=== PATIENT | female | born 1960 | race Caucasian/White ===

== ENCOUNTER 2018-04-05 12:23 | Observation (INO) | payer OTHER, SELFPAY ==
[2018-04-05] VITALS (11 sets, daily range): BP systolic 94–135; BP diastolic 68–89; PULSE 88–134; RESP 15–18; TEMP 36.3–36.8; O2SAT 95–100; BMI 21.3; BMI 24.5
--- NOTE | 2018-04-05 12:36 | EKG12_ITS ---
Test Reason : PALPS Blood Pressure : / mmHG Vent. Rate : 110 BPM Atrial Rate : 110 BPM P-R Int : 138 ms QRS Dur : 086 ms QT Int : 342 ms P-R-T Axes : 056 044 023 degrees QTc Int : 462 ms Sinus tachycardia Possible Left atrial enlargement Nonspecific ST and T wave abnormality Abnormal ECG Confirmed by FADUMO WAGNER, AIDEE ([id number]), purchasing expeditor MARIZA CASTELLANOS ([id number]) on 04/11/2018 2:39:07 PM Referred By: FLAVIA Confirmed By:AIDEE THORNE MD
--- NOTE | 2018-04-05 12:50 | RAD_ITS ---
STUDY: X-RAY CHEST REASON FOR EXAM: Female, 58 years old. Tachycardia TECHNIQUE: Single AP portable view of the chest. COMPARISON: 06/24/2014 FINDINGS: The lungs are clear and expanded. There is no demonstrated pleural abnormality. Normal size heart. Normal mediastinum and paulette. Normal visualized pulmonary arteries. Normal visualized aortic arch and descending thoracic aorta. Normal visualized thoracic spine. Normal visualized ribs, clavicles, and shoulders. There is no demonstrated abnormality of the visualized soft tissue structures of the upper abdomen. RAD/Chest 1 View (Portable) IMPRESSION: Normal x-ray examination of the chest. Electronically Signed: Jayjay Landin DO at 13:17 EST Tel , Service support ,
[2018-04-05] MEDS: Aspirin 81 MG TAB.CHEW 324 MG PO (13:01)
[2018-04-05 13:03] LABS: Absolute Lymphocyte Count 0.95 X10^3/ul (0.83-4.51); Absolute Neutrophil Count 4.5 X10^3/uL (2.0-7.7); Basophil# 0.01 X10^3/uL; Basophil% 0.2 % (0-1); Hemoglobin 13.6 g/dl (12.0-15.0); Lymphocyte # 0.95 X10^3/ul (4.0); Lymphocyte % 16.7 % (19-41); Mean Corpuscular Hgb 31.5 pg (27.0-32.0); Mean Corpuscular Volume 92.6 fL (81-99); Mean Platelet Vol. 9.9 fl (6.2-12.0); Monocyte# 0.17 X10^3/uL; Neutrophil # 4.54 X10^3/uL (2.7-7.7); Neutrophil % 79.9 % (47-70); Platelet Count 207 K/mm3 (150-450); RBC Distribution Width SD 39.8 fl (35.1-43.9); Red Blood Count 4.32 M/mm3 (4.2-5.4); White Blood Count 5.7 K/mm3 (4.4-11.0)
[2018-04-05] MEDS: 0.9% Normal Saline 1,000 ML 150 ML IV (13:04)
[2018-04-05 13:05] LABS: POSITIVE COUNT NO; POSITIVE DIFFERENTIAL NO; POSITIVE MORPHOLOGY NO
[2018-04-05 13:25] LABS: Anion Gap 11 (5-15); BUN 17 mg/dL (7-18); BUN/Creat Ratio 18.6 RATIO (10-20); Calcium,Total 8.9 mg/dL (8.5-10.1); Chloride 107 mmol/L (98-107); Creatinine, Serum 0.91 mg/dL (0.55-1.02); EST Glomerular Filtration Rate 68 mL/min (>60); Est Glom Filt Rate - Afr Amer 82 mL/min (>60); Estimated Creatinine Clearance 52.09 ml/min; Glucose 126 mg/dL (74-106); Potassium 3.2 mmol/L (3.5-5.1); Sodium Level 139 mmol/L (136-145)
--- NOTE | 2018-04-05 13:48 | ED.VISSUMM ---
- ER Visit Summary Date of Service: 04/05/18 Chief Complaint: [Racing heart and shortness of breath] History of Present Illness: The patient is a 58 F presents the emergency department with symptoms that started 2 hours ago. Patient states that she had worked out on her [place] bicycle. Patient states that while in the shower she felt like her heart was racing and began feeling very winded. Patient had some mild discomfort in her left shoulder. Patient is never had discomfort like this before. Patient is normally very active but she is only had a bicycle for about 4 days and she has been trying to do about 10 minutes a day. Prior to today she denies any exertional dyspnea or chest pain with activity. She denies any nausea or vomiting. Patient has history of hypothyroidism and anxiety but states she has not had a panic attack in many years.] Physical Examination: [HEENT-PERRLA, EOMI. Cranial nerves II through XII grossly intact. TMs clear. Mucous membranes moist. No adenopathy. Cardiovascular-regular rate and rhythm without murmur or ectopy Lungs-clear to auscultation, chest wall stable without crepitus or subcu emphysema Abdomen-normoactive bowel sounds, soft, nontender, no rebound or rigidity, no peritoneal signs. Extremities-intact ?4, normal range of motion, normal pulses, atraumatic] Test Results: [EKG obtained arrival shows sinus rhythm with a ventricular rate of 110 bpm with some nonspecific ST changes noted. No old EKGs available for comparison. CBC with differential showing a 5.7, hemoglobin 13.6, hematocrit 40, placed 207. Chemistries unremarkable other than a slightly depressed potassium of 3.2 for which I did order 40 mEq of potassium chloride p.o. Troponin was less than 0.015. D-dimer was normal 0.30. Chest x-ray was normal.] Emergency Department Course and Treatment: [Patient was given baby aspirin 324 mg p.o.] Treatment Plan: [Admit for further workup and evaluation] Disposition: [Admit] Impression: [Anginal equivalent/dyspnea Tachycardia] This note was generated with [employer] dictation software. It may contain incorrect words, spelling, and punctuation that were not noted in review of the chart prior to signing ED Disposition - Plan for ED Patient: Chief Complaint: Palpitations Referrals: Anat Ford MD [Primary Care Provider] -
--- NOTE | 2018-04-05 14:10 | PCM.HP.STD ---
Problem List (1) Palpitation Status: Acute (2) Papillary carcinoma of thyroid Status: Chronic (3) Hypothyroidism Status: Chronic History of Present Illness Date of Admission: 04/05/18 Chief Complaint: Palpitation, shortness of breath, chest tightness. The patient is a 58 year old F with past medical history as mentioned above presented to the emergency because of palpitation and shortness of breath. Her symptoms started this morning when she was taking a shower, started feeling that her heart is racing, associated with dizziness and not feeling well. She came out of shower and she continued to do her daily activities but she continued to have palpitation, feeling a little bit dizzy and later, she started having chest discomfort. She described this chest discomfort as chest tightness, not clear pain, retrosternal, not radiating, continue to have associated palpitation and mild shortness of breath and without aggravating or relieving factors. She mentioned that she did have a history of panic attacks in the past. She denied sweating, nausea, vomiting, syncope or presyncope. In the emergency department, patient was afebrile, tachycardic, blood pressure and pulse ox was normal. Her routine blood work was remarkable for potassium of 3.2, otherwise normal. EKG revealed sinus tachycardia without evidence of other acute ischemic changes or cardiac arrhythmias. Her troponin was negative. Chest x-ray showed no acute findings. D-dimer was negative. She is being admitted for palpitation, shortness of breath and chest discomfort. 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 Denies: Chest Pain, Heaviness, Light Headedness, Syncope Respiratory: Reports: Shortness of Breath. Denies: Cough, Pleuritic Pain, Sputum production, Wheezing Gastrointestinal: Denies: Abdominal Pain, Constipation, Diarrhea, Nausea, Vomiting Genitourinary: Denies: Dysuria, Frequency, Hematuria Musculoskeletal: Denies: Arm Pain, Back Pain, Foot Pain Skin: Denies: Dryness, Rash Neurological: Denies: Balance problems, Double vision, Change in Speech, Slurred speech, Confusion, Headaches, Incoordination, Numbness Psychiatric: Denies: Anxiety, Depression Endocrine: Denies: Change in Body Habitus, Polydipsia VTE Information - Inpt Only VTE Present on Admission: No VTE Mechan Device Prophylaxis: None VTE Pharm Prophylaxis ordered?: No Patient Problems: Active and Suspected Problems Palpitation (Acute) - Physical Exam General: Alert, Oriented x3, Cooperative, No apparent distress HEENT: Atraumatic, PERRLA, EOMI, Normocephalic Oral: Moist Mucosa, No Gingival or Mucosal Lesions/ Ulcerations Neck: Supple, No JVD, Negative Carotid Bruits, Trachea Midline, Thyroid Normal Size and Texture Lungs: Clear to auscultation, Normal air movement, No rhonchi, No wheeze, No rales Cardiovascular: Regular rate, Regular Rhythm, Normal S1, Normal S2, PMI Normal, Tachycardic Abdomen: Bowel Sounds Present, Soft, Non Tender, Non-Distended, No Hepato-splenomegaly Extremities: No clubbing, No cyanosis, No edema Skin: No rashes, No breakdown Lymphatic: No Cervical, Supraclavicular, or Inguinal Adenopathy Neurological: Cranial nerves II-XII grossly intact, Motor Exam 5/5 strength throughout Psych/Mental Status: Normal Affect, Appropriate, Alert and oriented to time, place, person, mood and affect Vital Signs Temp Pulse Resp BP Pulse Ox 97.4 F L 99 15 135/80 H 100 04/05/18 12:24 04/05/18 12:57 04/05/18 12:57 04/05/18 12:57 04/05/18 12:57 Oxygen Delivery Method Room Air Weight: 214 lb 11.684 oz Body Mass Index (BMI) 40.6 Laboratory Tests Past 24 Hrs 04/05/18 04/05/18 04/05/18 12:50 12:50 12:50 WBC 5.7 RBC 4.32 Hgb 13.6 Hct 40.0 MCV 92.6 MCH 31.5 MCHC 34.0 RDW 12.0 RDW Differential 39.8 Plt Count 207 MPV 9.9 Immature Gran % (Auto) 0.200 Neut % (Auto) 79.9 H Lymph % (Auto) 16.7 L [place] % (Auto) 3.0 Eos % (Auto) 0.0 Baso % (Auto) 0.2 Absolute Neuts (auto) 4.5 Absolute Lymphs (auto) 0.95 Total Counted Not Reportable D-Dimer Quant (PE/DVT) 0.30 Sodium 139 Potassium 3.2 L Chloride 107 Carbon Dioxide 21.0 Anion Gap 11 BUN 17 Creatinine 0.91 Estim Creat Clear Calc 52.09 Est GFR (MDRD) Af Amer 82 Est GFR (MDRD) Non-Af 68 BUN/Creatinine Ratio 18.6 Glucose 126 H Calcium 8.9 Troponin I < 0.015 TSH 04/05/18 12:50 WBC RBC Hgb Hct MCV MCH MCHC RDW RDW Differential Plt Count MPV Immature Gran % (Auto) Neut % (Auto) Lymph % (Auto) [place] % (Auto) Eos % (Auto) Baso % (Auto) Absolute Neuts (auto) Absolute Lymphs (auto) Total Counted D-Dimer Quant (PE/DVT) Sodium Potassium Chloride Carbon Dioxide Anion Gap BUN Creatinine Estim Creat Clear Calc Est GFR (MDRD) Af Amer Est GFR (MDRD) Non-Af BUN/Creatinine Ratio Glucose Calcium Troponin I TSH Pending Clinical Impression(s) from Imaging Studies Chest X-Ray 04/05/18 12:50 IMPRESSION: Normal x-ray examination of the chest. Electronically Signed: Jayjay Landin DO at 13:17 EST Tel , Service support , Assessment/Plan All Active Problems Palpitation (Acute) This is a 58 years old female patient presented to the ED because of palpitation, shortness of breath and chest discomfort and she is being admitted for evaluation. #1 palpitations/shortness of breath/chest discomfort: No risk factors for CAD and no family history of premature CAD. Her EKG revealed sinus tachycardia, no acute ischemic changes. Troponin is negative. D-dimer was negative. Chest x-ray showed no acute findings. Her symptoms could be due to palpitation causing mild shortness of breath and chest discomfort which can be explained over replacement of levothyroxine as her TSH is low at 0.22. Routine blood work was unremarkable. Plan: Admit to PCU for observation, cardiac monitoring, serial cardiac enzymes, repeat EKG tomorrow morning, 2D echocardiogram, nuclear stress test tomorrow morning, Tylenol as needed, Zofran as needed, nitroglycerin as needed for pain. #2 hypothyroidism: TSH is low at 0.22 indicating over supplement with levothyroxine. Plan: Decrease levothyroxine down to 50 mcg daily, will check T4, both free and total as well as free T3. 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 Plan as above. #4 DVT prophylaxis: Low-risk patient, no prophylaxis indicated. This note was generated with [employer] software. It may contain incorrect words, spelling, and punctuation that were not noted in checking the note before signing. Code Visit OBSV E&M: 21540 Initial observation care L3
[2018-04-05 14:17] LABS: Thyroid Stim Hormone (TSH) 0.22 uIU/mL (0.358-3.74)
--- NOTE | 2018-04-05 14:32 | ECHOD_ITS ---
Reason For Study: Palpitations Procedure This was a 2D Doppler, Color Flow transthoracic echocardiogram. Exam performed portable in patient room. Left Ventricle Normal size and thickness. The estimated ejection fraction is 65 %. Stage 1 diastolic dysfunction. No regional wall motion abnormalities noted. Right Ventricle Normal size and thickness. Normal systolic function. Atria Normal left atrium. Normal right atrium. Normal atrial septum. Bubble contrast study negative for right to left interatrial shunt. Mitral Valve The mitral valve is structurally normal. No prolapse or stenosis seen. Tricuspid Valve Normal tricuspid valve. Trivial tricuspid valve insufficiency. Unable to estimate RV systolic pressure/pulmonary artery pressure due to technically difficult study. Aortic Valve Normal aortic valve. Trisinus/trileaflet aortic valve. Pulmonic Valve Normal pulmonic valve. Great Vessels Normal aortic root. Normal arch. Normal inferior vena cava. Inferior vena cava collapse with sniff. Pericardium/Pleural No pericardial effusion. Medication Performed a rapid injection of agitated mix of 9 cc saline and 1cc air to assess for atrial septal defect. MMode/2D Measurements & Calculations LVIDd: 4.2 cm IVSd: 0.94 cm Ao root diam: 2.7 cm LVIDs: 2.6 cm LVPWd: 0.73 cm RVDd: 2.8 cm FS: 37.7 % LAV(MOD-bp): 24.5 ml LVAd ap4: 20.5 cm2 SV(MOD-sp4): 36.1 ml LAV(MOD-bp) Indexed: 15.6 ml/m2 EDV(MOD-sp4): 52.9 ml LAV(MOD-sp2): 23.9 ml EDV(sp4-el): 54.7 ml LAV(MOD-sp4): 24.4 ml LVAs ap4: 9.7 cm2 ESV(MOD-sp4): 16.9 ml ESV(sp4-el): 16.4 ml EF(MOD-sp4): 68.1 % EF(sp4-el): 70.1 % SV(sp4-el): 38.3 ml LA A4 area: 11.2 cm2 LA dimension(2D): 2.7 cm RA A4 area: 9.1 cm2 Doppler Measurements & Calculations MV E max jimi: 82.3 cm/sec Lat Peak E' Jimi: 17.6 cm/sec Med Peak E' Jimi: 9.3 cm/sec MV A max jimi: 115.1 cm/sec E/E' lat: 4.7 E/E' med: 8.9 MV E/A: 0.71 Ao V2 max: 158.8 cm/sec LV V1 max: 135.1 cm/sec PA V2 max: 112.5 cm/sec Ao max P.1 mmHg LV V1 max P.3 mmHg Ao V2 mean: 117.3 cm/sec Ao mean P.9 mmHg Ao V2 VTI: 26.5 cm Interpretation Summary The estimated ejection fraction is 65 %. Stage 1 diastolic dysfunction. Bubble contrast study negative for right to left interatrial shunt. Trivial tricuspid valve insufficiency. Unable to estimate RV systolic pressure/pulmonary artery pressure due to technically difficult study. There is no comparison study available. Ordering Physician: Sabas Packer Referring Physician: Anat Ford Performed By: Helena Webb RDCS, RVT
--- NOTE | 2018-04-05 15:56 | EKG12_ITS ---
Test Reason : CP Blood Pressure : / mmHG Vent. Rate : 088 BPM Atrial Rate : 088 BPM P-R Int : 120 ms QRS Dur : 086 ms QT Int : 378 ms P-R-T Axes : 027 038 020 degrees QTc Int : 457 ms Normal sinus rhythm Normal ECG Confirmed by FADUMO WAGNER, AIDEE ([id number]), editor in chief newspaper MARIZA CASTELLANOS ([id number]) on 04/11/2018 3:49:16 PM Referred By: DIANDRA Confirmed By:AIDEE THORNE MD
[2018-04-05 17:04] LABS: Free T3 2.9 pg/mL (2.18-3.98); T4 Free Direct 1.27 ng/dL (0.76-1.46); T4 Total, Thyroxin 7.9 ug/dL (4.8-13.9)
[2018-04-06 02:58] VITALS: PULSE 72
[2018-04-06 03:08] VITALS: BP 102/65; PULSE 74; RESP 14; TEMP 36.6; O2SAT 96
[2018-04-06 05:45] VITALS: BP 97/66; PULSE 78; RESP 14; TEMP 36.6; O2SAT 97
[2018-04-06 05:46] LABS: Prothrombin Time (Protime)PT. 13.6 SECONDS (11.7-14.9)
[2018-04-06] MEDS: Levothyroxine 50 MCG Tablet PO (05:47)
[2018-04-06 05:55] LABS: Hematocrit 36.9 % (37-47); Hemoglobin 12.7 g/dl (12.0-15.0); Mean Corp Hgb Conc 34.4 g/gl (32-36); Mean Corpuscular Hgb 32.2 pg (27.0-32.0); Mean Corpuscular Volume 93.7 fL (81-99); Mean Platelet Vol. 10.1 fl (6.2-12.0); Platelet Count 195 K/mm3 (150-450); RBC Distribution Width CV 12.2 % (11.6-14.6); RBC Distribution Width SD 40.9 fl (35.1-43.9); Red Blood Count 3.94 M/mm3 (4.2-5.4); White Blood Count 5.6 K/mm3 (4.4-11.0)
--- NOTE | 2018-04-06 05:55 | EKG12_ITS ---
Test Reason : AM EKG Blood Pressure : / mmHG Vent. Rate : 076 BPM Atrial Rate : 076 BPM P-R Int : 126 ms QRS Dur : 092 ms QT Int : 392 ms P-R-T Axes : 030 044 019 degrees QTc Int : 441 ms Normal sinus rhythm with sinus arrhythmia Nonspecific ST segment abnormality Confirmed by FADUMO WAGNER, AIDEE ([id number]), newspaper editor managing MARIZA CASTELLANOS ([id number]) on 04/11/2018 3:47:26 PM Referred By: DR SMITH Confirmed By:AIDEE THORNE MD
[2018-04-06 06:04] LABS: Anion Gap 8 (5-15); BUN 15 mg/dL (7-18); BUN/Creat Ratio 19.9 RATIO (10-20); Calcium,Total 8.5 mg/dL (8.5-10.1); Chloride 111 mmol/L (98-107); Creatinine, Serum 0.75 mg/dL (0.55-1.02); EST Glomerular Filtration Rate 85 mL/min (>60); Est Glom Filt Rate - Afr Amer 102 mL/min (>60); Glucose 88 mg/dL (74-106); Potassium 3.8 mmol/L (3.5-5.1); Sodium Level 143 mmol/L (136-145)
[2018-04-06 06:06] LABS: Scan Indicated on CBC? Y/N NO
--- NOTE | 2018-04-06 09:33 | STRESSREP ---
Stress Test Report Date: 04/06/2018 Procedure: Stress nuclear imaging study Indications: Chest pain Consent: Per the patient Procedure: The patient exercised on a Jack protocol for 9 minutes completing Stage III achieving a peak heart rate of 173 beats per minute (105% predicted maximal heart rate) with a peak blood pressure of 144/64 mmHg and a peak MET capacity of approximately 10 METS. The baseline ECG demonstrated normal sinus rhythm with nonspecific ST segment abnormalities. The peak exercise ECG demonstrated no obvious ECG changes. There were no cardiac dysrhythmias pretest, during exercise, or recovery. The functional capacity was considered good. The patient had no complaint of chest discomfort during exercise or recovery. The examination was discontinued secondary to dyspnea. Impression: 1. Technically adequate (percent predicted maximal heart rate greater than 85%) exercise tolerance test 2. Peak exercise ECG with no obvious ECG changes 3. Nuclear images pending Myocardial perfusion imaging study: Technique: The patient was injected with 11.8 mci of technetium 99 M Cardiolite and subsequently rest SPECT Cardiolite nuclear imaging was obtained in the horizontal long, vertical long, and short axis views. The patient exercised on a Jack protocol for 9 minutes completing Stage III achieving a peak heart rate of 173 beats per minute (105% predicted maximal heart rate) with a peak blood pressure of 144/64 mmHg and a peak MET capacity of approximately 10 METS. The patient was injected with 33.4 mci of technetium-99m Cardiolite and subsequently stress SPECT Cardiolite nuclear imaging was obtained in the horizontal long, vertical long, and short axis views. A gated Cardiolite study at peak stress was obtained. Interpretation: Rest and stress SPECT Cardiolite nuclear imaging status post realignment, normalization, and attenuation correction, demonstrates the appearance of relative uniform tracer uptake and myocardial perfusion appearing within normal limits. There is end systolic thickening and brightening. The gated Cardiolite study demonstrates myocardial thickening and inward wall motion. The reported LVEF is 79%. Impression: 1. Rest and stress SPECT Cardiolite nuclear imaging demonstrate relative uniform tracer uptake and myocardial perfusion appearing within normal limits. 2. The gated Cardiolite study reports an LVEF of 79%. This note was generated using a voice recognition system and there may be incorrect words, spelling or punctuation that were not noted when reviewing the office note prior to saving.
[2018-04-06 10:00] VITALS: BP 109/73; PULSE 68; RESP 18; TEMP 37.1; O2SAT 100
--- NOTE | 2018-04-06 11:11 | DCINST_ITS ---
- Discharge Diagnoses Current Active Problems: Current Active and Chronic Problems Palpitation (Acute) Papillary carcinoma of thyroid (Chronic) Hypothyroidism (Chronic) You will use the following diet at home:: No restrictions Your food should be the consistency of: Regular Your liquids should be the consistency of: Regular/Thin Discharge Activity: Return to Normal Activity Allergies/Adverse Reactions: Allergies No Known Allergies Allergy (Verified 04/05/18 15:06) Medications to take at Discharge Biotin 1 mg PO DAILY 04/05/18 Levothyroxine [Synthroid] 88 mcg PO DAILY 04/05/18 Zinc 50 mg PO DAILY 04/05/18 Primary Care Physician: Anat Ford MD [Primary Care Provider] - Please follow up with your Primary Care Physician in: 1-2 weeks Test Results: Test results from this visit will be discussed in further detail at your follow- up appointment, if applicable. Proposed Discharge Date: 04/06/18
[2018-04-06 11:57] VITALS: PULSE 97
[2018-04-06 12:26] VITALS: BP 117/71; PULSE 89; RESP 18; TEMP 36.8; O2SAT 100; O2SAT 98
--- NOTE | 2018-04-06 13:05 | DS.PCM_ITS ---
<Eduar Isaacs - Last Filed: 04/06/18 13:01> Discharge Date and Diagnosis - Problem List Patient Problems: Active and Suspected Problems Palpitation (Acute) Date of Admission: 04/05/18 Date of Discharge: 04/06/18 - Primary Discharge Diagnosis Active and Suspected Problems Heart racing and SOB Anxiety Papillary carcinoma of the thyroid Hypothyroidism - Secondary Discharge Diagnosis Chronic Problems Papillary carcinoma of thyroid (Chronic) Hypothyroidism (Chronic) Hospital Course and Treatment Imaging Results: 04/06/18 05:55 Nuclear Stress Test - Treadmil [NM] Routine Impression: 1. Rest and stress SPECT Cardiolite nuclear imaging demonstrate relative uniform tracer uptake and myocardial perfusion appearing within normal limits. 2. The gated Cardiolite study reports an LVEF of 79%. Echo: Interpretation Summary The estimated ejection fraction is 65 %. Stage 1 diastolic dysfunction. Bubble contrast study negative for right to left interatrial shunt. Trivial tricuspid valve insufficiency. Unable to estimate RV systolic pressure/pulmonary artery pressure due to technically difficult study. There is no comparison study available. RAD/Chest 1 View (Portable) IMPRESSION: Normal x-ray examination of the chest. 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 She denied chest pain. She reported that she had just purchased a new exercise bike and was doing a workout on it at home, afterwards she was doing floor exercises and noticed her heart was racing and she felt somewhat short of breath. She states that this made her very anxious and this made her feel even worse. 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 In the ER her troponin was negative, EKG was sinus tach, potassium was somewhat low, d-dimer was negative, TSH was low however T3 and T4 were normal. She is admitted to the PCU and placed on telemetry. She had a stress test the following day which was negative. She underwent an echocardiogram which was unremarkable. She had no further symptoms after admission. It is felt that her symptoms were likely related to her new exercise program and anxiety her symptoms. She was discharged home in stable condition advised to follow-up with her PCP in 1-2 weeks. This patient was seen by Eduar Isaacs PA-C under the supervision of Doctor Vic. [] Patient Problems: Active and Suspected Problems Palpitation (Acute) - Physical Exam General: Alert, Oriented x3, Cooperative HEENT: Atraumatic, PERRLA, EOMI, Normocephalic Neck: Supple, No JVD, Negative Carotid Bruits Lungs: Clear to auscultation, Normal air movement Cardiovascular: Regular rate, No murmurs Abdomen: Bowel Sounds Present, Soft, Non Tender Extremities: No edema, Capillary Refill Less than 3 Seconds Skin: No rashes, No breakdown Musculoskeletal: No Tenderness to Palpation of Joints or Extremities Neurological: Cranial nerves II-XII grossly intact Psych/Mental Status: Normal Affect, Appropriate, Alert and oriented to time, place, person, mood and affect Vital Signs Temp Pulse Resp BP Pulse Ox 98.2 F 89 18 117/71 100 04/06/18 12:26 04/06/18 12:26 04/06/18 12:26 04/06/18 12:26 04/06/18 12:26 Oxygen Delivery Method Room Air Weight: 129 lb 13.636 oz Body Mass Index (BMI) 24.5 Intake and Output for Last 24 Hours 04/04/18 04/05/18 04/06/18 23:59 23:59 23:59 Intake Total 1000 / 1000 850 / 850 Balance 1000 / 1000 850 / 850 Laboratory Tests Past 24 Hrs 04/05/18 04/05/18 04/05/18 12:50 12:50 12:50 WBC 5.7 RBC 4.32 Hgb 13.6 Hct 40.0 MCV 92.6 MCH 31.5 MCHC 34.0 RDW 12.0 RDW Differential 39.8 Plt Count 207 MPV 9.9 Immature Gran % (Auto) 0.200 Neut % (Auto) 79.9 H Lymph % (Auto) 16.7 L [place] % (Auto) 3.0 Eos % (Auto) 0.0 Baso % (Auto) 0.2 Absolute Neuts (auto) 4.5 Absolute Lymphs (auto) 0.95 Total Counted Not Reportable PT INR APTT D-Dimer Quant (PE/DVT) 0.30 Sodium 139 Potassium 3.2 L Chloride 107 Carbon Dioxide 21.0 Anion Gap 11 BUN 17 Creatinine 0.91 Estim Creat Clear Calc 52.09 Est GFR (MDRD) Af Amer 82 Est GFR (MDRD) Non-Af 68 BUN/Creatinine Ratio 18.6 Glucose 126 H Calcium 8.9 Troponin I < 0.015 TSH Free T4 Thyroxine (T4) Free T3 pg/dL 04/05/18 04/05/18 04/05/18 12:50 15:54 15:54 WBC RBC Hgb Hct MCV MCH MCHC RDW RDW Differential Plt Count MPV Immature Gran % (Auto) Neut % (Auto) Lymph % (Auto) [place] % (Auto) Eos % (Auto) Baso % (Auto) Absolute Neuts (auto) Absolute Lymphs (auto) Total Counted PT INR APTT D-Dimer Quant (PE/DVT) Sodium Potassium Chloride Carbon Dioxide Anion Gap BUN Creatinine Estim Creat Clear Calc Est GFR (MDRD) Af Amer Est GFR (MDRD) Non-Af BUN/Creatinine Ratio Glucose Calcium Troponin I < 0.015 TSH 0.22 L Free T4 1.27 Thyroxine (T4) 7.9 Free T3 pg/dL 2.9 04/05/18 04/06/18 04/06/18 18:55 05:15 05:15 WBC 5.6 RBC 3.94 L Hgb 12.7 Hct 36.9 L MCV 93.7 MCH 32.2 H MCHC 34.4 RDW 12.2 RDW Differential 40.9 Plt Count 195 MPV 10.1 Immature Gran % (Auto) Neut % (Auto) Lymph % (Auto) [place] % (Auto) Eos % (Auto) Baso % (Auto) Absolute Neuts (auto) Absolute Lymphs (auto) Total Counted PT 13.6 INR 1.0 APTT 28.0 D-Dimer Quant (PE/DVT) Sodium Potassium Chloride Carbon Dioxide Anion Gap BUN Creatinine Estim Creat Clear Calc Est GFR (MDRD) Af Amer Est GFR (MDRD) Non-Af BUN/Creatinine Ratio Glucose Calcium Troponin I < 0.015 TSH Free T4 Thyroxine (T4) Free T3 pg/dL 04/06/18 05:15 WBC RBC Hgb Hct MCV MCH MCHC RDW RDW Differential Plt Count MPV Immature Gran % (Auto) Neut % (Auto) Lymph % (Auto) [place] % (Auto) Eos % (Auto) Baso % (Auto) Absolute Neuts (auto) Absolute Lymphs (auto) Total Counted PT INR APTT D-Dimer Quant (PE/DVT) Sodium 143 Potassium 3.8 Chloride 111 H Carbon Dioxide 24.0 Anion Gap 8 BUN 15 Creatinine 0.75 Estim Creat Clear Calc 63.20 Est GFR (MDRD) Af Amer 102 Est GFR (MDRD) Non-Af 85 BUN/Creatinine Ratio 19.9 Glucose 88 Calcium 8.5 Troponin I TSH Free T4 Thyroxine (T4) Free T3 pg/dL Discharge Diet: No Restrictions Discharge Activity: Return to Normal Activity Home Medications: Medications to take at Discharge Biotin 1 mg PO DAILY 04/05/18 Levothyroxine [Synthroid] 88 mcg PO DAILY 04/05/18 Zinc 50 mg PO DAILY 04/05/18 Primary Care Physician: Anat Ford MD [Primary Care Provider] - Please follow up with your Primary Care Physician in: 1-2 weeks Disposition: Home Minutes spent on discharge:: 35 Patient Condition:: Stable Medical Necessity - Tobacco Use Smoking Status: Never smoker Tobacco Use: Non-smoker Meaningful Use Info Meaningful Use Diagnoses (Choose all that apply): None applicable <Cristian Ho - Last Filed: 04/06/18 13:35> Discharge Date and Diagnosis - Primary Discharge Diagnosis Active and Suspected Problems Palpitation (Acute) - Secondary Discharge Diagnosis Chronic Problems Papillary carcinoma of thyroid (Chronic) Hypothyroidism (Chronic) Hospital Course and Treatment Imaging Results: 04/06/18 05:55 Nuclear Stress Test - Treadmil [NM] Routine Operations: None Procedures: 2-D Echocardiogram, Stress test Summary of Care Provided: Patient seen and examined independently. Data reviewed. I agree with the above note by the physician instruction assistant principal. The patient is a 58 year old F presents with feeling of fast heart rate after working out. Patient said that she was experiencing it as well after working out when she was walking her dog, though did endorse that she did feel anxious. Patient was admitted underwent cardiac workup that was unremarkable. In regards to the patient's symptoms, in regards to the fast heart rate, it is likely related with the patient's new workout that she was under taking anxiety. Advised patient to resume working out but to be started lower intensity are paced and then gradually work her way up as her and her endurance improves. No additional workup was necessary. [] - Physical Exam General: Alert, Cooperative HEENT: Atraumatic, Normocephalic Psych/Mental Status: Normal Affect, Appropriate Vital Signs Temp Pulse Resp BP Pulse Ox 36.8 C 89 18 117/71 100 04/06/18 12:26 04/06/18 12:26 04/06/18 12:26 04/06/18 12:26 04/06/18 12:26 Oxygen Delivery Method Room Air Weight: 58.9 kg Body Mass Index (BMI) 24.5 Intake and Output for Last 24 Hours 04/04/18 04/05/18 04/06/18 23:59 23:59 23:59 Intake Total 1000 / 1000 850 / 850 Balance 1000 / 1000 850 / 850 Laboratory Tests Past 24 Hrs 04/05/18 04/05/18 04/05/18 12:50 15:54 15:54 WBC RBC Hgb Hct MCV MCH MCHC RDW RDW Differential Plt Count MPV PT INR APTT Sodium Potassium Chloride Carbon Dioxide Anion Gap BUN Creatinine Estim Creat Clear Calc Est GFR (MDRD) Af Amer Est GFR (MDRD) Non-Af BUN/Creatinine Ratio Glucose Calcium Troponin I < 0.015 TSH 0.22 L Free T4 1.27 Thyroxine (T4) 7.9 Free T3 pg/dL 2.9 04/05/18 04/06/18 04/06/18 18:55 05:15 05:15 WBC 5.6 RBC 3.94 L Hgb 12.7 Hct 36.9 L MCV 93.7 MCH 32.2 H MCHC 34.4 RDW 12.2 RDW Differential 40.9 Plt Count 195 MPV 10.1 PT 13.6 INR 1.0 APTT 28.0 Sodium Potassium Chloride Carbon Dioxide Anion Gap BUN Creatinine Estim Creat Clear Calc Est GFR (MDRD) Af Amer Est GFR (MDRD) Non-Af BUN/Creatinine Ratio Glucose Calcium Troponin I < 0.015 TSH Free T4 Thyroxine (T4) Free T3 pg/dL 04/06/18 05:15 WBC RBC Hgb Hct MCV MCH MCHC RDW RDW Differential Plt Count MPV PT INR APTT Sodium 143 Potassium 3.8 Chloride 111 H Carbon Dioxide 24.0 Anion Gap 8 BUN 15 Creatinine 0.75 Estim Creat Clear Calc 63.20 Est GFR (MDRD) Af Amer 102 Est GFR (MDRD) Non-Af 85 BUN/Creatinine Ratio 19.9 Glucose 88 Calcium 8.5 Troponin I TSH Free T4 Thyroxine (T4) Free T3 pg/dL Discharge Diet: No Restrictions Discharge Activity: Return to Normal Activity Disposition: Home Patient Condition:: Stable Meaningful Use Info Meaningful Use Diagnoses (Choose all that apply): None applicable Code Visit OBSV E&M: 03570 Observation care discharge
--- OUTSIDE RECORDS SUMMARY | 2018-06-07 12:19 | XMS RPT_ITS ---
:1960 Author Organization [facility] Care Team Providers Name Role Phone Anat Ford Primary Care Unavailable Ashelfah, Ghasem Admitting Unavailable Cristian Ho Attending Unavailable Ashelfah, Ghasem Admitting Unavailable Ashelfah, Ghasem Attending Unavailable Anat Ford Primary Care Unavailable Ashelfah, Ghasem Consulting Unavailable Ashelfah, Ghasem Admitting Unavailable Eduar Isaacs Attending Unavailable Anat Ford Primary Care Unavailable Cristian Ho Consulting Unavailable HASAN, MERVAT Referring Unavailable HASAN, MERVAT Referring Unavailable HASAN, MERVAT Referring Unavailable PAM SOTO Referring Unavailable PAM SOTO Attending Unavailable IMCA Referring Unavailable ANAT FORD Primary Care Unavailable Marija SOTO Attending Unavailable ANAT FORD Primary Care Unavailable IMCA Referring Unavailable PROBLEMS PROBLEMS DATE TYPE CONDITION / CODE ATTENDING STATUS SOURCE 02/13/2018 Active Encounter for NA Active [place] [facility] examination [place] (general) (routine) Repository without abnormal findings / Z01.419(ICD-10) 08/30/2017 Admitting Unknown / Marija SOTO Active [facility] diagnosis UNK(Unknown) [facility] Repository 08/17/2013 Active Malignant neoplasm NA Active [place] of thyroid gland / Clinic Main C73(ICD-10) [place] Repository 01/01/2014 Active 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 / Clinic Main E04.1(ICD-10) [place] Repository 08/17/2013 Active Hypothyroidism, NA Active [place] unspecified / Clinic Main E03.9(ICD-10) [place] Repository PROCEDURES PROCEDURES No Procedure Records FoundRESULTS RESULTS DISCHARGE SUMMARY Observed: 04/06/2018 Status: F Source: EROS 1:36 PM [facility] REPOSITORY [facility] Medical Records Department [address] [place] [address] Discharge Summary 04/06/18 1301 MR#: [id number] Acct: [id number] Name: ALAINA RUIZ Rep #: [id number] : 1960 58 From: Eduar RICHARDS PCP: Anat Ford MD Status: DIS COURTNEY Y Location: [place] [id number] <Eduar Isaacs - Last Filed: 04/06/18 13:01> Discharge Date and Diagnosis - Problem List Patient Problems: Active and Suspected Problems Palpitation (Acute) Date of Admission: 04/05/18 Date of Discharge: 04/06/18 - Primary Discharge Diagnosis Active and Suspected Problems Heart racing and SOB Anxiety Papillary carcinoma of the thyroid Hypothyroidism - Secondary Discharge Diagnosis Chronic Problems Papillary carcinoma of thyroid (Chronic) Hypothyroidism (Chronic) Hospital Course and Treatment Imaging Results: 04/06/18 05:55 Nuclear Stress Test - Treadmil [NM] Routine Impression: 1. Rest and stress SPECT Cardiolite nuclear imaging demonstrate relative uniform tracer uptake and myocardial perfusion appearing within normal limits. 2. The gated Cardiolite study reports an LVEF of 79%. Echo: Interpretation Summary The estimated ejection fraction is 65 %. Stage 1 diastolic dysfunction. Bubble contrast study negative for right to left interatrial shunt. Trivial tricuspid valve insufficiency. Unable to estimate RV systolic pressure/pulmonary artery pressure due to technically difficult study. There is no comparison study available. RAD/Chest 1 View (Portable) IMPRESSION: Normal x-ray examination of the chest. 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 She denied chest pain. She reported that she had just purchased a new exercise bike and was doing a workout on it at home, afterwards she was doing floor exercises and noticed her heart was racing and she felt somewhat short of breath. She states that this made her very anxious and this made her feel even worse. 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 In the ER her troponin was negative, EKG was sinus tach, potassium was somewhat low, d-dimer was negative, TSH was low however T3 and T4 were normal. She is admitted to the PCU and placed on telemetry. She had a stress test the following day which was negative. She underwent an echocardiogram which was unremarkable. She had no further symptoms after admission. It is felt that her symptoms were likely related to her new exercise program and anxiety her symptoms. She was discharged home in stable condition advised to follow-up with her PCP in 1-2 weeks. This patient was seen by Eduar Isaacs PA-C under the supervision of Doctor Ho. [] Patient Problems: Active and Suspected Problems Palpitation (Acute) - Physical Exam General: Alert, Oriented x3, Cooperative HEENT: Atraumatic, PERRLA, EOMI, Normocephalic Neck: Supple, No JVD, Negative Carotid Bruits Lungs: Clear to auscultation, Normal air movement Cardiovascular: Regular rate, No murmurs Abdomen: Bowel Sounds Present, Soft, Non Tender Extremities: No edema, Capillary Refill Less than 3 Seconds Skin: No rashes, No breakdown Musculoskeletal: No Tenderness to Palpation of Joints or Extremities Neurological: Cranial nerves II-XII grossly intact Psych/Mental Status: Normal Affect, Appropriate, Alert and oriented to time, place, person, mood and affect Vital Signs Temp Pulse Resp BP Pulse Ox 98.2 F 89 18 117/71 100 04/06/18 12:26 04/06/18 12:26 04/06/18 12:26 04/06/18 12:04/06/18 12:26 Oxygen Delivery Method Room Air Weight: 129 lb 13.636 oz Body Mass Index (BMI) 24.5 Intake and Output for Last 24 Hours Intake Total 1000 / 1000 850 / 850 Balance 1000 / 1000 850 / 850 Laboratory Tests Past 24 Hrs WBC 5.7 RBC 4.32 Hgb 13.6 Hct 40.0 MCV 92.6 WBC RBC Hgb Hct MCV MCH MCHC RDW RDW Differential Plt Count MPV WBC RBC Hgb Hct MCV MCH MCHC RDW Discharge Diet: No Restrictions Discharge Activity: Return to Normal Activity Home Medications: Medications to take at Discharge Biotin 1 mg PO DAILY 04/05/18 Levothyroxine [Synthroid] 88 mcg PO DAILY 04/05/18 Zinc 50 mg PO DAILY 04/05/18 Primary Care Physician: Anat Ford MD [Primary Care Provider] - Please follow up with your Primary Care Physician in: 1-2 weeks Disposition: Home Minutes spent on discharge:: 35 Patient Condition:: Stable Medical Necessity - Tobacco Use Smoking Status: Never smoker Tobacco Use: Non-smoker Meaningful Use Info Meaningful Use Diagnoses (Choose all that apply): None applicable <Cristian Ho - Last Filed: 04/06/18 13:35> Discharge Date and Diagnosis - Primary Discharge Diagnosis Active and Suspected Problems Palpitation (Acute) - Secondary Discharge Diagnosis Chronic Problems Papillary carcinoma of thyroid (Chronic) Hypothyroidism (Chronic) Hospital Course and Treatment Imaging Results: 04/06/18 05:55 Nuclear Stress Test - Treadmil [NM] Routine Operations: None Procedures: 2-D Echocardiogram, Stress test Summary of Care Provided: Patient seen and examined independently. Data reviewed. I agree with the above note by the physician restaurant assistant. The patient is a 58 year old F presents with feeling of fast heart rate after working out. Patient said that she was experiencing it as well after working out when she was walking her dog, though did endorse that she did feel anxious. Patient was admitted underwent cardiac workup that was unremarkable. In regards to the patient's symptoms, in regards to the fast heart rate, it is likely related with the patient's new workout that she was under taking anxiety. Advised patient to resume working out but to be started lower intensity are paced and then gradually work her way up as her and her endurance improves. No additional workup was necessary. [] - Physical Exam General: Alert, Cooperative HEENT: Atraumatic, Normocephalic Psych/Mental Status: Normal Affect, Appropriate Vital Signs Temp Pulse Resp BP Pulse Ox 36.8 C 89 18 117/71 100 04/06/18 12:26 04/06/18 12:26 04/06/18 12:26 04/06/18 12:26 04/06/18 12:26 Oxygen Delivery Method Room Air Weight: 58.9 kg Body Mass Index (BMI) 24.5 Intake and Output for Last 24 Hours Intake Total 1000 / 1000 850 / 850 Balance 1000 / 1000 850 / 850 Laboratory Tests Past 24 Hrs WBC RBC Hgb Hct MCV MCH MCHC RDW RDW Differential WBC 5.6 RBC 3.94 L Hgb 12.7 Hct 36.9 L MCV 93.7 MCH 32.2 H MCHC 34.4 RDW 12.2 RDW Differential 40.9 WBC RBC Hgb Hct MCV MCH MCHC Discharge Diet: No Restrictions Discharge Activity: Return to Normal Activity Disposition: Home Patient Condition:: Stable Meaningful Use Info Meaningful Use Diagnoses (Choose all that apply): None applicable Code Visit OBSV E AND M: 85250 Observation care discharge 04/06/18 1306 <Electronically signed by Eduar RICHARDS> Date Eduar RICHARDS 04/06/18 1336 <Electronically signed by Cristian Ho DO> Cosigner Signature (if applicable): Date Cristian Ho DO CC: SUSIE Isaacs; Cristian Ho DO; Anat Ford MD Signed DISCHARGE INSTRUCTION Observed: 04/06/2018 Status: F Source: STEFAN 11:11 AM [facility] REPOSITORY [facility] Medical Records Department [address] [place] [address] Instructions for Home/Discharge Instructions 04/06/18 1111 MR#: [id number] Acct: [id number] Name: ALAINA RUIZ Rep #: [id number] : 1960 58 From: Eduar RICHARDS PCP: Anat Ford MD Status: ADM COURTNEY - Discharge Diagnoses Current Active Problems: Current Active and Chronic Problems Palpitation (Acute) Papillary carcinoma of thyroid (Chronic) Hypothyroidism (Chronic) You will use the following diet at home:: No restrictions Your food should be the consistency of: Regular Your liquids should be the consistency of: Regular/Thin Discharge Activity: Return to Normal Activity Allergies/Adverse Reactions: Allergies No Known Allergies Allergy (Verified 04/05/18 15:06) Medications to take at Discharge Biotin 1 mg PO DAILY 04/05/18 Levothyroxine [Synthroid] 88 mcg PO DAILY 04/05/18 Zinc 50 mg PO DAILY 04/05/18 Primary Care Physician: Anat Ford MD [Primary Care Provider] - Please follow up with your Primary Care Physician in: 1-2 weeks Test Results: Test results from this visit will be discussed in further detail at your follow-up appointment, if applicable. Proposed Discharge Date: 04/06/18 04/06/18 1111 <Electronically signed by Eduar RICHARDS> Date Eduar RICHARDS CC: Anat Ford MD Signed STRESS REPORT Observed: 04/06/2018 Status: F Source: EROS 9:38 AM [facility] REPOSITORY [facility] Cardiovascular Services [address] [place] [address] MR#: [id number] Acct: [id number] Name: ALAINA RUIZ Rep #: [id number] : 1960 58 From: Jose C Wang MD Primary Care: Anat Ford MD Status: ADM COURTNEY Ordering Dr: Sex: F C Stress Test Report Date: 04/06/2018 Procedure: Stress nuclear imaging study Indications: Chest pain Consent: Per the patient Procedure: The patient exercised on a Jack protocol for 9 minutes completing Stage III achieving a peak heart rate of 173 beats per minute (105% predicted maximal heart rate) with a peak blood pressure of 144/64 mmHg and a peak MET capacity of approximately 10 METS. The baseline ECG demonstrated normal sinus rhythm with nonspecific ST segment abnormalities. The peak exercise ECG demonstrated no obvious ECG changes. There were no cardiac dysrhythmias pretest, during exercise, or recovery. The functional capacity was considered good. The patient had no complaint of chest discomfort during exercise or recovery. The examination was discontinued secondary to dyspnea. Impression: 1. Technically adequate (percent predicted maximal heart rate greater than 85%) exercise tolerance test 2. Peak exercise ECG with no obvious ECG changes 3. Nuclear images pending Myocardial perfusion imaging study: Technique: The patient was injected with 11.8 mci of technetium 99 M Cardiolite and subsequently rest SPECT Cardiolite nuclear imaging was obtained in the horizontal long, vertical long, and short axis views. The patient exercised on a Jack protocol for 9 minutes completing Stage III achieving a peak heart rate of 173 beats per minute (105% predicted maximal heart rate) with a peak blood pressure of 144/64 mmHg and a peak MET capacity of approximately 10 METS. The patient was injected with 33.4 mci of technetium-99m Cardiolite and subsequently stress SPECT Cardiolite nuclear imaging was obtained in the horizontal long, vertical long, and short axis views. A gated Cardiolite study at peak stress was obtained. Interpretation: Rest and stress SPECT Cardiolite nuclear imaging status post realignment, normalization, and attenuation correction, demonstrates the appearance of relative uniform tracer uptake and myocardial perfusion appearing within normal limits. There is end systolic thickening and brightening. The gated Cardiolite study demonstrates myocardial thickening and inward wall motion. The reported LVEF is 79%. Impression: 1. Rest and stress SPECT Cardiolite nuclear imaging demonstrate relative uniform tracer uptake and myocardial perfusion appearing within normal limits. 2. The gated Cardiolite study reports an LVEF of 79%. This note was generated using a voice recognition system and there may be incorrect words, spelling or punctuation that were not noted when reviewing the office note prior to saving. 04/06/18937 <Electronically signed by Jose C Wang MD> Date Jose C Wang MD CC: Cristian Ford MD Date Dictated: 04/06/18932 Date Transcribed: 04/06/18932 Flexo Press Operator: PM Signed ECHOCARDIOGRAM COMPLETE Observed: 04/06/2018 Status: F Source: STEFAN 9:02 AM [facility] REPOSITORY [facility] Cardiovascular Services [address] [place] [address] Echo Complete 04/05/18 1502 MR#: [id number] Acct: [id number] Name: ALAINA RUIZ Rep #: [id number] : 1960 58 From: Mario Correa MD Attending Dr: Cristian Ho DO Status: ADM COURTNEY Ordering Dr: Sabas Packer MD Date: 04/05/18 Location: [facility] Sex: F C Admitted: 04/05/18 Reason For Study: Palpitations Procedure This was a 2D Doppler, Color Flow transthoracic echocardiogram. Exam performed portable in patient room. Left Ventricle Normal size and thickness. The estimated ejection fraction is 65 %. Stage 1 diastolic dysfunction. No regional wall motion abnormalities noted. Right Ventricle Normal size and thickness. Normal systolic function. Atria Normal left atrium. Normal right atrium. Normal atrial septum. Bubble contrast study negative for right to left interatrial shunt. Mitral Valve The mitral valve is structurally normal. No prolapse or stenosis seen. Tricuspid Valve Normal tricuspid valve. Trivial tricuspid valve insufficiency. Unable to estimate RV systolic pressure/pulmonary artery pressure due to technically difficult study. Aortic Valve Normal aortic valve. Trisinus/trileaflet aortic valve. Pulmonic Valve Normal pulmonic valve. Great Vessels Normal aortic root. Normal arch. Normal inferior vena cava. Inferior vena cava collapse with sniff. Pericardium/Pleural No pericardial effusion. Medication Performed a rapid injection of agitated mix of 9 cc saline and 1cc air to assess for atrial septal defect. MMode/2D Measurements AND Calculations LVIDd: 4.2 cm IVSd: 0.94 cm Ao root diam: 2.7 cm LVIDs: 2.6 cm LVPWd: 0.73 cm RVDd: 2.8 cm FS: 37.7 % LAV(MOD-bp): 24.5 ml LVAd ap4: 20.5 cm2 SV(MOD-sp4): 36.1 ml LAV(MOD-bp) Indexed: 15.6 ml/m2 EDV(MOD-sp4): 52.9 ml LAV(MOD-sp2): 23.9 ml EDV(sp4-el): 54.7 ml LAV(MOD-sp4): 24.4 ml LVAs ap4: 9.7 cm2 ESV(MOD-sp4): 16.9 ml ESV(sp4-el): 16.4 ml EF(MOD-sp4): 68.1 % EF(sp4-el): 70.1 % SV(sp4-el): 38.3 ml LA A4 area: 11.2 cm2 LA dimension(2D): 2.7 cm RA A4 area: 9.1 cm2 Doppler Measurements AND Calculations MV E max jimi: 82.3 cm/sec Lat Peak E' Jimi: 17.6 cm/sec Med Peak E' Jimi: 9.3 cm/sec MV A max jimi: 115.1 cm/sec E/E' lat: 4.7 E/E' med: 8.9 MV E/A: 0.71 Ao V2 max: 158.8 cm/sec LV V1 max: 135.1 cm/sec PA V2 max: 112.5 cm/sec Ao max P.1 mmHg LV V1 max P.3 mmHg Ao V2 mean: 117.3 cm/sec Ao mean P.9 mmHg Ao V2 VTI: 26.5 cm Interpretation Summary The estimated ejection fraction is 65 %. Stage 1 diastolic dysfunction. Bubble contrast study negative for right to left interatrial shunt. Trivial tricuspid valve insufficiency. Unable to estimate RV systolic pressure/pulmonary artery pressure due to technically difficult study. There is no comparison study available. Ordering Physician: Sabas Packer Referring Physician: Anat Ford Performed By: Helena Webb, TONEY, RVT 04/06/18 09 Date Mario Correa MD CC: Cristian Ho DO; Sabas Packer; Anat Ford MD Date Dictated: 04/05/18 1502 Date Transcribed: 04/06/18 0901 Flexo Press Operator: Signed BASIC METABOLIC Collected: 04/06/2018 Status: F Source: STEFAN PROFILE (BMP) 5:15 AM [facility] REPOSITORY TYPE CODE TESTS RESULT OUT OF RANGE REFERENCE UNITS LAB L501.0100 74-106 mg/dL Normal GLU 88 Result Comment: Please note revised GLUCOSE reference range effective 2017. LAB L501.1000 7-18 mg/dL Normal BUN 15 LAB L501.1100 0.55-1.02 mg/dL Normal CREAT,SERUM 0.75 Result Comment: The validity of the calculated GFR AND GFRAA in patients over 70 years has not been determined. Clinical correlation is essential. LAB L501.1110 >60 mL/min Normal EST GFR 85 Result Comment: Non- GFR Calc LAB L501.1115 >60 mL/min Normal EST GFR - AA 102 Result Comment: GFR Calc LAB L501.1255 ml/min Normal Estimated CRCL 63.20 LAB L501.1300 10-20 RATIO Normal BUN/CRE 19.9 LAB L501.2200 8.5-10 mg/dL Normal .1 CA 8.5 LAB L501.5300 136-14 mmol/L Normal 5 NA 143 LAB L501.5600 3.5-5. mmol/L Normal 1 K 3.8 LAB L501.5900 98-107 mmol/L High CL 111 LAB L501.6100 21.0-3 mmol/L Normal 2.0 CO2 24.0 LAB L501.6200 5-15 Normal GAP 8 Performed By: #### L500.2500 #### [facility] [address] [place], [place], [address] CBC-COMPLETE BLOOD CNT Collected: 04/06/2018 Status: F Source: STEFAN NO DIFF 5:15 AM [facility] REPOSITORY TYPE CODE TESTS RESULT OUT OF RANGE REFERENCE UNITS LAB L100.1000 4.4-11.0 K/mm3 Normal WBC 5.6 LAB L100.1200 4.2-5.4 M/mm3 Low RBC 3.94 LAB L100.1300 12.0-15.0 g/dl Normal HGB 12.7 LAB L100.1400 37-47 % Low HCT 36.9 LAB L100.1500 81-99 fL Normal MCV 93.7 LAB L100.1600 27.0-32.0 pg High MCH 32.2 LAB L100.1700 32-36 g/gl Normal MCHC 34.4 LAB L100.1810 11.6-14.6 % Normal RDW CV 12.2 LAB L100.1820 35.1-43.9 fl Normal RDW SD 40.9 LAB L100.1900 150-450 K/mm3 Normal PLT 195 LAB L100.2000 6.2-12.0 fl Normal MPV 10.1 Performed By: #### L100.0500 #### [facility] [address] [place], [place], [id number] PROTHROMBIN TIME W/INR Collected: 04/06/2018 Status: F Source: EROS 5:15 AM [facility] REPOSITORY TYPE CODE TESTS RESULT OUT OF RANGE REFERENCE UNITS LAB L300.4150 11.7-14.9 SECONDS Normal PROTIME 13.6 LAB L300.4200 Normal INR 1.0 Performed By: #### L300.3900, L300.4310 #### [facility] [address] [place], [address] PARTIAL THROMBOPLAST Collected: 04/06/2018 Status: F Source: EROS TIME 5:15 AM [facility] REPOSITORY TYPE CODE TESTS RESULT OUT OF RANGE REFERENCE UNITS LAB L300.4310 24.1-36.2 Seconds Normal PTT 28.0 Performed By: #### L300.3900, L300.4310 #### [facility] [address] [place], [address] TROPONIN-I Collected: 04/05/2018 Status: F Source: EROS 6:55 PM [facility] REPOSITORY Order Comment: 'TROP' Serial specimen #1, #2 or #3: 3 TYPE CODE TESTS RESULT OUT OF RANGE REFERENCE UNITS LAB L501.4010 <0.045 ng/mL Normal < 0.015 TROPONIN-I Result Comment: TROPONIN-I EXPECTED VALUES <0.045 Negative 0.045 - 0.590 Consistent with Cardiac Damage > OR = 0.600 Critical Value Not every elevated troponin is indicative of ID. These values should be used with clinical judgement in examining the patient's clinical picture for diagnosis. To establish a diagnosis of ID versus myocardial injury, there must be a demonstrated rise and/or fall in the troponin values, in addition to ischemic symptoms, EKG changes, new regional wall motion abnormality, and/or angiographical evidence. PLEASE NOTE: REFERENCE RANGES EDITED 17 Performed By: #### L501.4010 #### [facility] [address] [place], [address] TROPONIN-I Collected: 04/05/2018 Status: F Source: EROS 3:54 PM [facility] REPOSITORY Order Comment: 'TROP' Serial specimen #1, #2 or #3: 2 TYPE CODE TESTS RESULT OUT OF RANGE REFERENCE UNITS LAB L501.4010 <0.045 ng/mL Normal < 0.015 TROPONIN-I Result Comment: TROPONIN-I EXPECTED VALUES <0.045 Negative 0.045 - 0.590 Consistent with Cardiac Damage > OR = 0.600 Critical Value Not every elevated troponin is indicative of ID. These values should be used with clinical judgement in examining the patient's clinical picture for diagnosis. To establish a diagnosis of ID versus myocardial injury, there must be a demonstrated rise and/or fall in the troponin values, in addition to ischemic symptoms, EKG changes, new regional wall motion abnormality, and/or angiographical evidence. PLEASE NOTE: REFERENCE RANGES EDITED 17 Performed By: #### L501.4010 #### [facility] [address] [place], [address] FREE T3 Collected: 04/05/2018 Status: F Source: EROS 3:54 PM [facility] REPOSITORY TYPE CODE TESTS RESULT OUT OF RANGE REFERENCE UNITS LAB L501.33413 2.18-3.98 pg/mL Normal FREE T3 2.9 Performed By: #### L501.71288, L501.9310, L506.0400 #### [facility] [address] [place], [address] T4 TOTAL, THYROXIN Collected: 04/05/2018 Status: F Source: EROS 3:54 PM [facility] REPOSITORY TYPE CODE TESTS RESULT OUT OF RANGE REFERENCE UNITS LAB L501.9310 4.8-13.9 ug/dL T4 Normal THYROXIN 7.9 Performed By: #### L501.38257, L501.9310, L506.0400 #### [facility] [address] [place], [address] T4 FREE DIRECT Collected: 04/05/2018 Status: F Source: EROS 3:54 PM [facility] REPOSITORY TYPE CODE TESTS RESULT OUT OF RANGE REFERENCE UNITS LAB L506.0400 0.76-1.46 ng/dL Normal T4 FREE 1.27 DIRECT Performed By: #### L501.10134, L501.9310, L506.0400 #### [facility] [address] [place], [address] HISTORY AND PHYSICAL Observed: 04/05/2018 Status: F Source: EROS EXAM 3:29 PM [facility] REPOSITORY [facility] Medical Records Department [address] [place] [address] History and Physical 04/05/18 1410 MR#: [id number] Acct: [id number] Name: ALAINA RUIZ Rep #: [id number] : 1960 58 From: Sabas Packer MD PCP: Anat Ford MD Status: ADM COURTNEY Y Location: [place] [address] Problem List (1) Palpitation Status: Acute (2) Papillary carcinoma of thyroid Status: Chronic (3) Hypothyroidism Status: Chronic History of Present Illness Date of Admission: 04/05/18 Chief Complaint: Palpitation, shortness of breath, chest tightness. The patient is a 58 year old F with past medical history as mentioned above presented to the emergency because of palpitation and shortness of breath. Her symptoms started this morning when she was taking a shower, started feeling that her heart is racing, associated with dizziness and not feeling well. She came out of shower and she continued to do her daily activities but she continued to have palpitation, feeling a little bit dizzy and later, she started having chest discomfort. She described this chest discomfort as chest tightness, not clear pain, retrosternal, not radiating, continue to have associated palpitation and mild shortness of breath and without aggravating or relieving factors. She mentioned that she did have a history of panic attacks in the past. She denied sweating, nausea, vomiting, syncope or presyncope. In the emergency department, patient was afebrile, tachycardic, blood pressure and pulse ox was normal. Her routine blood work was remarkable for potassium of 3.2, otherwise normal. EKG revealed sinus tachycardia without evidence of other acute ischemic changes or cardiac arrhythmias. Her troponin was negative. Chest x- ray showed no acute findings. D-dimer was negative. She is being admitted for palpitation, shortness of breath and chest discomfort. Past Medical History Past Medical History (Chronic Problems): Chronic Problems Papillary carcinoma of thyroid (Chronic) Hypothyroidism (Chronic) Allergies No Known Allergies Allergy (Verified 04/05/18 12:27) Home Medications: Ambulatory Orders Medication Instructions Recorded Biotin 1 mg PO DAILY 04/05/18 Levothyroxine [Synthroid] 88 mcg PO DAILY 04/05/18 Zinc 50 mg PO DAILY 04/05/18 Surgical History: no surgical history Psychiatric History: No pertinent psych hx NEUROSURGERY SPINE PHYSICIAN History: No pertinent NEUROSURGERY SPINE PHYSICIAN history Lives: Spouse/ Significant Other Smoking Status: Never smoker Alcohol: Rare Drugs: None - *Family History Maternal History Items: No pertinent history Paternal History Items: Hypertension Sibling History Items: Hypertension Review of Systems Constitutional: Denies: Anorexia, Chills, Fever, Weakness Eyes: Denies: Blurred vision, Double vision, Drainage, Redness HEENT: Denies: Difficulty Hearing, Ear Pain, Eye Pain, Nasal Congestion, Sore Throat Cardiovascular: Reports: Chest Tightness, Palpitations. Denies: Chest Pain, Heaviness, Light Headedness, Syncope Respiratory: Reports: Shortness of Breath. Denies: Cough, Pleuritic Pain, Sputum production, Wheezing Gastrointestinal: Denies: Abdominal Pain, Constipation, Diarrhea, Nausea, Vomiting Genitourinary: Denies: Dysuria, Frequency, Hematuria Musculoskeletal: Denies: Arm Pain, Back Pain, Foot Pain Skin: Denies: Dryness, Rash Neurological: Denies: Balance problems, Double vision, Change in Speech, Slurred speech, Confusion, Headaches, Incoordination, Numbness Psychiatric: Denies: Anxiety, Depression Endocrine: Denies: Change in Body Habitus, Polydipsia VTE Information - Inpt Only VTE Present on Admission: No VTE Mechan Device Prophylaxis: None VTE Pharm Prophylaxis ordered?: No Patient Problems: Active and Suspected Problems Palpitation (Acute) - Physical Exam General: Alert, Oriented x3, Cooperative, No apparent distress HEENT: Atraumatic, PERRLA, EOMI, Normocephalic Oral: Moist Mucosa, No Gingival or Mucosal Lesions/ Ulcerations Neck: Supple, No JVD, Negative Carotid Bruits, Trachea Midline, Thyroid Normal Size and Texture Lungs: Clear to auscultation, Normal air movement, No rhonchi, No wheeze, No rales Cardiovascular: Regular rate, Regular Rhythm, Normal S1, Normal S2, PMI Normal, Tachycardic Abdomen: Bowel Sounds Present, Soft, Non Tender, Non-Distended, No Hepato-splenomegaly Extremities: No clubbing, No cyanosis, No edema Skin: No rashes, No breakdown Lymphatic: No Cervical, Supraclavicular, or Inguinal Adenopathy Neurological: Cranial nerves II-XII grossly intact, Motor Exam 5/5 strength throughout Psych/Mental Status: Normal Affect, Appropriate, Alert and oriented to time, place, person, mood and affect Vital Signs Temp Pulse Resp BP Pulse Ox 97.4 F L 99 15 135/80 H 100 04/05/18 12:24 04/05/18 12:57 04/05/18 12:57 04/05/18 12:57 04/05/18 12:57 Oxygen Delivery Method Room Air Weight: 214 lb 11.684 oz Body Mass Index (BMI) 40.6 Laboratory Tests Past 24 Hrs WBC RBC Hgb Hct MCV MCH MCHC RDW RDW Differential Plt Count MPV Immature Gran % (Auto) Neut % (Auto) Lymph % (Auto) Clinical Impression(s) from Imaging Studies Chest X-Ray 04/05/18 12:50 IMPRESSION: Normal x-ray examination of the chest. Electronically Signed: Jayjay Landin DO at 13:17 EST Tel , Service support , Assessment/Plan All Active Problems Palpitation (Acute) This is a 58 years old female patient presented to the ED because of palpitation, shortness of breath and chest discomfort and she is being admitted for evaluation. #1 palpitations/shortness of breath/chest discomfort: No risk factors for CAD and no family history of premature CAD. Her EKG revealed sinus tachycardia, no acute ischemic changes. Troponin is negative. D-dimer was negative. Chest x-ray showed no acute findings. Her symptoms could be due to palpitation causing mild shortness of breath and chest discomfort which can be explained over replacement of levothyroxine as her TSH is low at 0.22. Routine blood work was unremarkable. Plan: Admit to PCU for observation, cardiac monitoring, serial cardiac enzymes, repeat EKG tomorrow morning, 2D echocardiogram, nuclear stress test tomorrow morning, Tylenol as needed, Zofran as needed, nitroglycerin as needed for pain. #2 hypothyroidism: TSH is low at 0.22 indicating over supplement with levothyroxine. Plan: Decrease levothyroxine down to 50 mcg daily, will check T4, both free and total as well as free T3. 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 Plan as above. #4 DVT prophylaxis: Low-risk patient, no prophylaxis indicated. This note was generated with [employer] software. It may contain incorrect words, spelling, and punctuation that were not noted in checking the note before signing. Code Visit OBSV E AND M: [id number] Initial observation care L3 04/05/18 1529 <Electronically signed by Sabas Packer MD> Date Sabas Packer MD Cosigner Signature: Date (if applicable) CC: Sabas Packer; Anat Ford MD Signed EMERGENCY DEPARTMENT Observed: 04/05/2018 Status: F Source: EROS SUMMARY 1:51 PM [facility] REPOSITORY [facility] Medical Records Department [address] [place] [address] Emergency Department Summary 04/05/18 1348 MR#: [id number] Acct: [id number] Name: ALAINA RUIZ Rep #: [id number] : 1960 58 From: Artur Keenan DO PCP: Anat Ford MD Status: REG ER - ER Visit Summary Date of Service: 04/05/18 Chief Complaint: [Racing heart and shortness of breath] History of Present Illness: The patient is a 58 F presents the emergency department with symptoms that started 2 hours ago. Patient states that she had worked out on her [place] bicycle. Patient states that while in the shower she felt like her heart was racing and began feeling very winded. Patient had some mild discomfort in her left shoulder. Patient is never had discomfort like this before. Patient is normally very active but she is only had a bicycle for about 4 days and she has been trying to do about 10 minutes a day. Prior to today she denies any exertional dyspnea or chest pain with activity. She denies any nausea or vomiting. Patient has history of hypothyroidism and anxiety but states she has not had a panic attack in many years.] Physical Examination: [HEENT-PERRLA, EOMI. Cranial nerves II through XII grossly intact. TMs clear. Mucous membranes moist. No adenopathy. Cardiovascular-regular rate and rhythm without murmur or ectopy Lungs-clear to auscultation, chest wall stable without crepitus or subcu emphysema Abdomen-normoactive bowel sounds, soft, nontender, no rebound or rigidity, no peritoneal signs. Extremities-intact 4, normal range of motion, normal pulses, atraumatic] Test Results: [EKG obtained arrival shows sinus rhythm with a ventricular rate of 110 bpm with some nonspecific ST changes noted. No old EKGs available for comparison. CBC with differential showing a 5.7, hemoglobin 13.6, hematocrit 40, placed 207. Chemistries unremarkable other than a slightly depressed potassium of 3.2 for which I did order 40 mEq of potassium chloride p.o. Troponin was less than 0.015. D- dimer was normal 0.30. Chest x-ray was normal.] Emergency Department Course and Treatment: [Patient was given baby aspirin 324 mg p.o.] Treatment Plan: [Admit for further workup and evaluation] Disposition: [Admit] Impression: [Anginal equivalent/dyspnea Tachycardia] This note was generated with [employer] dictation software. It may contain incorrect words, spelling, and punctuation that were not noted in review of the chart prior to signing ED Disposition - Plan for ED Patient: Chief Complaint: Palpitations Referrals: Anat Ford MD [Primary Care Provider] - What to do if you have Problems For any increased pain, shortness of breath, bleeding, nausea or vomiting, chest pain, or any unexpected problems, contact your Primary Care Provider. Call [facility] ([phone]) or report to the closest Emergency Room. Call 911 if necessary. 04/05/18 1351 <Electronically signed by Artur Keenan DO> Date Remus Ungur DO Cosigner Signature (If Indicated): Date CC: Anat Ford MD CBC W/DIFF, AUTOMATED Collected: 04/05/2018 Status: F Source: STEFAN 12:50 PM [facility] REPOSITORY TYPE CODE TESTS RESULT OUT OF RANGE REFERENCE UNITS LAB L100.1000 4.4-11.0 K/mm3 Normal WBC 5.7 LAB L100.1200 4.2-5.4 M/mm3 Normal RBC 4.32 LAB L100.1300 12.0-15.0 g/dl Normal HGB 13.6 LAB L100.1400 37-47 % Normal HCT 40.0 LAB L100.1500 81-99 fL Normal MCV 92.6 LAB L100.1600 27.0-32.0 pg Normal MCH 31.5 LAB L100.1700 32-36 g/gl Normal MCHC 34.0 LAB L100.1810 11.6-14.6 % Normal RDW CV 12.0 LAB L100.1820 35.1-43.9 fl Normal RDW SD 39.8 LAB L100.1900 150-450 K/mm3 Normal PLT 207 LAB L100.2000 6.2-12.0 fl Normal MPV 9.9 LAB L100.2100 47-70 % High NEUT% 79.9 LAB L100.2200 19-41 % Low LY% 16.7 LAB L100.2300 0-10 % Normal MONO% 3.0 LAB L100.2400 0-5 % Normal EO% 0.0 LAB L100.2500 0-1 % Normal BASO% 0.2 LAB L100.2550 0.0-0.9 % Normal IM GRAN % 0.200 Result Comment: IG% - Immature Granulocytes (promyelocytes, myelocytes and metamyelocytes) > 1% indicates that a LEFT SHIFT is Present. LAB L100.2620 2.0-7.7 X10 3/uL Normal Absolute Neut 4.5 LAB L100.2720 0.83-4.51 X10 3/ul Normal Absolute Lymph 0.95 Performed By: #### L100.0100 #### [facility] [address] [place], [address] BASIC METABOLIC Collected: 04/05/2018 Status: F Source: STEFAN PROFILE (BMP) 12:50 PM [facility] REPOSITORY TYPE CODE TESTS RESULT OUT OF RANGE REFERENCE UNITS LAB L501.0100 74-106 mg/dL High GLU 126 Result Comment: Fasting Glucose result greater than or equal to 126 mg/dL suggests DIABETES MELLITUS per A.D.A. criteria. Please note revised GLUCOSE reference range effective 2017. LAB L501.1000 7-18 mg/dL Normal BUN 17 LAB L501.1100 0.55-1.02 mg/dL Normal CREAT,SERUM 0.91 Result Comment: The validity of the calculated GFR AND GFRAA in patients over 70 years has not been determined. Clinical correlation is essential. LAB L501.1110 >60 mL/min Normal EST GFR 68 Result Comment: Non- GFR Calc LAB L501.1115 >60 mL/min Normal EST GFR - AA 82 Result Comment: GFR Calc LAB L501.1255 ml/min Normal Estimated CRCL 52.09 LAB L501.1300 10-20 RATIO Normal BUN/CRE 18.6 LAB L501.2200 8.5-10 mg/dL Normal .1 CA 8.9 LAB L501.5300 136-14 mmol/L Normal 5 NA 139 LAB L501.5600 3.5-5. mmol/L Low 1 K 3.2 LAB L501.5900 98-107 mmol/L Normal CL 107 LAB L501.6100 21.0-3 mmol/L Normal 2.0 CO2 21.0 LAB L501.6200 5-15 Normal GAP 11 Performed By: #### L500.2500, L501.4010 #### [facility] [address] [place], [address] TROPONIN-I Collected: 04/05/2018 Status: F Source: EROS 12:50 PM [facility] REPOSITORY TYPE CODE TESTS RESULT OUT OF RANGE REFERENCE UNITS LAB L501.4010 <0.045 ng/mL Normal < 0.015 TROPONIN-I Result Comment: TROPONIN-I EXPECTED VALUES <0.045 Negative 0.045 - 0.590 Consistent with Cardiac Damage > OR = 0.600 Critical Value Not every elevated troponin is indicative of ID. These values should be used with clinical judgement in examining the patient's clinical picture for diagnosis. To establish a diagnosis of ID versus myocardial injury, there must be a demonstrated rise and/or fall in the troponin values, in addition to ischemic symptoms, EKG changes, new regional wall motion abnormality, and/or angiographical evidence. PLEASE NOTE: REFERENCE RANGES EDITED 17 Performed By: #### L500.2500, L501.4010 #### [facility] [address] [place], [address] D-DIMER QUANTITATIVE Collected: 04/05/2018 Status: F Source: EROS (DVT/PE) 12:50 PM [facility] REPOSITORY TYPE CODE TESTS RESULT OUT OF RANGE REFERENCE UNITS LAB L300.8000 0.27-0.49 FEU/ug/m Normal D-DIMER 0.30 QUANT Result Comment: NORMAL D-Dimer level (<0.50) indicates no DVT or PE. Performed By: #### L300.8000 #### [facility] [address] [place], [place], [address] THYROID STIM HORMONE Collected: 04/05/2018 Status: F Source: EROS (TSH) 12:50 PM [facility] REPOSITORY Order Comment: ADD ON TYPE CODE TESTS RESULT OUT OF RANGE REFERENCE UNITS LAB L501.9520 0.358-3.74 uIU/mL Low TSH 0.22 Performed By: #### L501.9520 #### [facility] [address] [place], [address] CHEST 1 VIEW Observed: 04/05/2018 Status: F Source: STEFAN (PORTABLE) 12:37 PM [facility] REPOSITORY [facility] Imaging Services [address] [place] [address] Chest 1 View (Portable) MR#: [id number] Acct: [id number] Name: ALAINA RUIZ Rep #: [id number] : 1960 F 58 From: Jayjay Landin DO PCP: Anat Ford MD Status: REG ER Study: Chest 1 View (Portable) Date of Exam: 04/05/18 Exam# [id number] Ordering Dr: Artur Keenan DO STUDY: X-RAY CHEST REASON FOR EXAM: Female, 58 years old. Tachycardia TECHNIQUE: Single AP portable view of the chest. COMPARISON: 06/24/2014 FINDINGS: The lungs are clear and expanded. There is no demonstrated pleural abnormality. Normal size heart. Normal mediastinum and paulette. Normal visualized pulmonary arteries. Normal visualized aortic arch and descending thoracic aorta. Normal visualized thoracic spine. Normal visualized ribs, clavicles, and shoulders. There is no demonstrated abnormality of the visualized soft tissue structures of the upper abdomen. RAD/Chest 1 View (Portable) IMPRESSION: Normal x-ray examination of the chest. Electronically Signed: Jayjay Landin DO at 13:17 EST Tel , Service support , CC: Anat Ford MD; Artur Keenan DO Flexo Press Operator: Signed CNCO Observed: 02/13/2018 Status: COMPLETED Source: EBRO 4:[address] [facility] REPOSITORY HNO ID: [id number] Author: Mammography Coordinator Service: (none) Author Type: Physician Type: Letter Filed: 02/14/2018 11:33 PM Note Text: February 13, 2018 PID: [id number] Alaina Ruiz [address] [place] [address] Dear Ms. Ruiz, We are pleased to inform you that the results of your recent breast imaging exam on 02/13/2018 are normal. Your mammogram demonstrates that you have dense breast tissue, which could hide abnormalities. Dense breast tissue, in and of itself, is a relatively common condition. Therefore, this information is not provided to cause undue concern; rather, it is to raise your awareness and promote discussion with your health care provider regarding the presence of dense breast tissue in addition to other risk factors. Early detection of cancer is very important. We also understand recommendations regarding breast cancer screening are controversial. Please discuss with your primary care provider which strategy is best for you and whether a mammogram is right for you. Your imaging studies and report will be kept on file at [facility] as part of your permanent medical record and are available for your continuing care. Thank you for allowing us to help in meeting your health care needs. Sincerely, Dr. Tracey Interpreting Radiologist [facility] (Normal over 40) [facility] SCREENING Observed: 02/13/2018 Status: F Source: EBRO 9:[address] [facility] REPOSITORY * * *Final Report* * * DATE OF EXAM: Feb 13 2018 9:15AM [facility] 0581 - [facility] SCREENING / PROCEDURE REASON: Encounter for gynecological examination (general) (routine) without abnormal fin * * * * Physician Interpretation * * * * RESULT: #[id number] - [facility] SCREENING BILATERAL DIGITAL SCREENING MAMMOGRAM WITH CAD: 02/13/2018 HISTORY: Encounter For Gynecological Examination (General) (Routine) Without Abnormal Fin /Screening Mammogram - patient reports NO symptoms /priors available for comparison. RESULT: TECHNIQUE: The study was acquired using full field digital technology and interpreted from soft copy. Current study was also evaluated with a Computer Aided Detection (CAD). Comparison is made to exams dated: 01/17/2017 mammogram - [facility], 12/15/2015 mammogram, 11/25/2014 mammogram - [facility], and 11/01/2013 mammogram - [facility]. The tissue of both breasts is heterogeneously dense. This may lower the sensitivity of mammography. No significant masses, calcifications, or other findings are seen in either breast. There has been no significant interval change. IMPRESSION: There is no mammographic evidence of malignancy. A 1 year screening mammogram is recommended. Jocelin lu/penrad:02/13/2018 16:41:05 Senior Librarian(s): RT Natalio(Lore)(M), [facility] letter sent: Normal over 40 Mammogram BI-RADS: 1 Negative Multiple national specialty organizations have released breast cancer screening guidelines for women at average risk for developing breast cancer - guidelines that are based on both evidence and opinion, yet differ on when to start and how often to screen for breast cancer. With representation from Breast Imaging, Internal Medicine, Women's Health, Family Medicine, and Medical/Surgical Oncology, the [facility] has carefully reviewed the data and reached the following consensus: 1) All women should engage in shared decision-making with their providers to decide when to start and how often to screen; 2) All women should have the opportunity to start screening mammography at age 40; 3) For women ages 45-55, we recommend annual screening mammograms; 4) For women ages 55 and over, we support both the transition from an annual to a biennial interval if this aligns more with patient's values and preferences, or continuation with annual screening; 5) All women should discuss with their providers when to stop screening mammograms. Flexo Press Operator: Francisco Javier Transcribe Date/Time: Feb 13 2018 9:15A Dictated by: JOCELIN TRACEY MD This examination was interpreted and the report reviewed and electronically signed by: JOCELIN TRACEY MD on Feb 13 2018 4:41PM EST [id number] PROGRESS Observed: 02/13/2018 Status: COMPLETED Source: EBRO 8:[address] [facility] REPOSITORY HNO ID: [id number] Author: Marcela Cat Service: (none) Author Type: (none) Type: Progress Notes Filed: 02/13/2018 9:17 AM Note Text: Radiology Service Progress Note PATIENT NAME: Alaina Ruiz DATE OF SERVICE: February 13, 2018 TIME: 8:59 AM PATIENT IDENTITY VERIFICATION COMPLETED USING TWO (2) METHODS: Patient confirmed name verbally and Date of . PATIENT GENDER DATA: Female. status: : No status: NO. PATIENT RELEVANT IMPLANT DATA REVIEWED: Not Applicable RADIOLOGY DEPARTMENT: Women's Health jimbo scr mammogram PERIPHERAL IV DATA: Not applicable SIGNED BY: Marcela Cat February 13, 2018 8:59 AM PROGRESS Observed: 08/30/2017 Status: COMPLETED Source: EBRO 10:[address] [facility] REPOSITORY HNO ID: [id number] Author: Pam Soto Service: (none) Author Type: Physician Type: Progress Notes Filed: 08/30/2017 11:06 AM Note Text: Alaina Ruiz is a 57 year old who presents for her annual gynecologic exam without complaints. Postmenopausal: perimenopause HRT use: No. Last Pap: 2016 normal HPV: 2017 negative History of abnormal pap: No Last mammogram: 2017 normal History of abnormal mammogram: No Sexually active: Yes Obstetric History T3 L3 SAB0 TAB0 Ectopic0 Multiple0 Live Births0 PAST MEDICAL HISTORY Diagnosis Date - Adjustment disorder with depressed mood 04/23/2008 of lung cancer, age 46 - Allergic rhinitis, cause unspecified 04/23/2008 seasonal - Capsulitis 08/03/2011 - Depression irritability, aggitation, celexa 06/2012 helps, at 46 d/t lung cancer in 2006 - Gastritis - GERD (gastroesophageal reflux disease) comes / goes - Tums or otc antacid - Hypothyroidism partial thyroidectomy, 2 mm papillary carcinoma - Thyroid nodule 01/06/2011 Thyroid ultrasound in 10/2013 showed absent right thyroid lobe and isthmus. Within left lobe, a 5 mm nodule again noted, no change. Thyroid ultrasound in 08/2012 showed absent right thyroid lobe and isthmus. Within left thyroid lobe, a 5 mm nodule is noted, without significant change. Right hemithyroidectomy/isthmuscectomy in 02/2011. Incidental papillary carcinoma (2 millimeteres in greatest dimension). PAST SURGICAL HISTORY Procedure Laterality Date - FNA WITH IMAGING 12/31/10 U/S FNA right thyroid nodule - PAST SURGICAL HISTORY OF 03/2005 right shoulder dislocated- manipulated back - THYROID LOBECTOMY,UNILAT 03-04-11 RIGHT AND ISTHMUS FAMILY HISTORY Problem Relation Age of Onset - Cancer Father lung - Hypertension Father - Hypertension Mother - Colon Cancer Mother age 70 - Cataract Mother - Coronary Artery Disease Other none - Diabetes Paternal Grandmother SOCIAL HISTORY Social History Substance Use Topics - Smoking status: Never Smoker - Smokeless tobacco: Never Used - Alcohol use Yes Comment: occasional REVIEW OF SYSTEMS Abdomen: No abdominal pain, nausea, vomiting, diarrhea, or constipation. No bloating, early satiety, indigestion, or increased flatulence. Bladder: No dysuria, gross hematuria, urinary frequency, urinary urgency, or incontinence Breast: No breast lumps, nipple d/c, overlying skin changes, redness or skin retraction Allergies and current medication updated:Yes EXAM: BP 128/76 Ht 5' .5 (1.54m) Wt 130 lb (59.0kg) LMP 03/01/2017 BMI 24.96 kg/(m2). GENERAL: pleasant, female in no apparent distress HEENT: Normocephalic, atraumatic, mucus membranes moist and no lesions NECK: Supple, full range of motion, no adenopathy and thyroid normal DERMATOLOGY: Normal, without lesions, non-icteric and non-hirsute BREAST: soft, non-tender, symmetric, no dominant mass, normal nipple-areolar complex, no lymphadenopathy and no nipple discharge CHEST: Normal inspiratory effort ABDOMEN: soft, non-tender and no masses PELVIC: external genitalia normal, normal Bartholin's glands, urethra, Griffin's glands, no vulvar lesions, no cervical lesions, good vaginal support, physiologic discharge present, normal appearing perineal body and perianal region BIMANUAL: uterus normal size, shape and consistency, midposition, no adnexal masses and non-tender RECTOVAGINAL: rectovaginal exam negative for any masses or nodularity. NEURO: alert and oriented x3,exam grossly non-focal EXTREMITIES: normal ASSESSMENT/PLAN: 1) Health maintenance: Pap/HPV up to date. Mammogram ordered Colon cancer screening: up to date with screening 2) Follow up one year or sooner as needed Pam Soto MD CNOV Observed: 08/30/2017 Status: COMPLETED Source: EBRO 10:00 AM [facility] REPOSITORY Office Visit (AGOBGRN) ALAINA RUIZ ([id number]) 1960 F Date Time Provider Department 08/30/17 10:00 AM PAM SOTO AGOBGRVandana During your visit today, we recorded the following information about you: Blood pressure Weight Height Last Period 128/76 59 kg 1.537 m 03/01/17 Betty Wheeler CMA 08/30/2017 10:07 AM Signed Container Repairer offered: Patient declines. Pam Soto MD 08/30/2017 11:06 AM Signed Alaina Ruiz is a 57 year old who presents for her annual gynecologic exam without complaints. Postmenopausal: perimenopause HRT use: No. Last Pap: 2017 normal HPV: 2017 negative History of abnormal pap: No Last mammogram: 2017 normal History of abnormal mammogram: No Sexually active: Yes Obstetric History T3 L3 SAB0 TAB0 Ectopic0 Multiple0 Live Births0 PAST MEDICAL HISTORY Diagnosis Date - Adjustment disorder with depressed mood 04/23/2008 of lung cancer, age 46 - Allergic rhinitis, cause unspecified 04/23/2008 seasonal - Capsulitis 08/03/2011 - Depression irritability, aggitation, celexa 06/2012 helps, at 46 d/t lung cancer in 2006 - Gastritis - GERD (gastroesophageal reflux disease) comes / goes - Tums or otc antacid - Hypothyroidism partial thyroidectomy, 2 mm papillary carcinoma - Thyroid nodule 01/06/2011 Thyroid ultrasound in 10/2013 showed absent right thyroid lobe and isthmus. Within left lobe, a 5 mm nodule again noted, no change. Thyroid ultrasound in 08/2012 showed absent right thyroid lobe and isthmus. Within left thyroid lobe, a 5 mm nodule is noted, without significant change. Right hemithyroidectomy/isthmuscectomy in 02/2011. Incidental papillary carcinoma (2 millimeteres in greatest dimension). PAST SURGICAL HISTORY Procedure Laterality Date - FNA WITH IMAGING 12/31/10 U/S FNA right thyroid nodule - PAST SURGICAL HISTORY OF 03/2005 right shoulder dislocated- manipulated back - THYROID LOBECTOMY,UNILAT 03-04-11 RIGHT AND ISTHMUS FAMILY HISTORY Problem Relation Age of Onset - Cancer Father lung - Hypertension Father - Hypertension Mother - Colon Cancer Mother age 70 - Cataract Mother - Coronary Artery Disease Other none - Diabetes Paternal Grandmother SOCIAL HISTORY Social History Substance Use Topics - Smoking status: Never Smoker - Smokeless tobacco: Never Used - Alcohol use Yes Comment: occasional REVIEW OF SYSTEMS Abdomen: No abdominal pain, nausea, vomiting, diarrhea, or constipation. No bloating, early satiety, indigestion, or increased flatulence. Bladder: No dysuria, gross hematuria, urinary frequency, urinary urgency, or incontinence Breast: No breast lumps, nipple d/c, overlying skin changes, redness or skin retraction Allergies and current medication updated:Yes EXAM: BP 128/76 Ht 5' .5 (1.54m) Wt 130 lb (59.0kg) LMP 03/01/2017 BMI 24.96 kg/(m2). GENERAL: pleasant, female in no apparent distress HEENT: Normocephalic, atraumatic, mucus membranes moist and no lesions NECK: Supple, full range of motion, no adenopathy and thyroid normal DERMATOLOGY: Normal, without lesions, non-icteric and non-hirsute BREAST: soft, non-tender, symmetric, no dominant mass, normal nipple-areolar complex, no lymphadenopathy and no nipple discharge CHEST: Normal inspiratory effort ABDOMEN: soft, non-tender and no masses PELVIC: external genitalia normal, normal Bartholin's glands, urethra, Griffin's glands, no vulvar lesions, no cervical lesions, good vaginal support, physiologic discharge present, normal appearing perineal body and perianal region BIMANUAL: uterus normal size, shape and consistency, midposition, no adnexal masses and non-tender RECTOVAGINAL: rectovaginal exam negative for any masses or nodularity. NEURO: alert and oriented x3,exam grossly non-focal EXTREMITIES: normal ASSESSMENT/PLAN: 1) Health maintenance: Pap/HPV up to date. Mammogram ordered Colon cancer screening: up to date with screening 2) Follow up one year or sooner as needed MD Pam Lawrence MD 08/30/2017 10:53 AM Signed ACOG Screening Guidelines (2015) The following health screening schedule is recommended by the [place] [employer] (ACOG). Some of these tests may be ordered or performed by your primary care doctor. Pap test screening The pap test looks at cells on the cervix (the opening from the vagina to the uterus) to look for cancer or pre-cancerous changes. These changes are caused by the human papillomavirus (HPV). Studies estimate that half of all women will test positive for this virus within 3 years of starting sexual activity. For young women with a normal immune system, 90% of HPV infections will resolve within 2 years. There is a vaccine available against some forms of HPV. This is recommended for girls and women age 9-26 and is a series of 3 injections over 6 months. Because this vaccine does not protect against all HPV types which can cause cervical cancer, women who received the vaccine still need pap tests. Pap smear screening should be started at age 21. The pap test should be done every 3 years from age 21-29. From age 30-65, pap smears can be done every 5 years if HPV test is negative or every 3 years if HPV testing is not done. For women over the age of 65, ACOG recommends against screening women who have had adequate prior screening and are not otherwise at high risk for cervical cancer. Women who have had a hysterectomy also do not need routine pap smear screening unless the pap smear was done for a cervical cancer or moderate to severe dysplasia. Breast cancer screening Mammogram should be performed every 1-2 years starting at age 40 and every year starting at age 50. Screening may be started earlier depending on family history. Cholesterol screening Lipid panel (cholesterol test) should be checked every 5 years starting at age 45. Diabetes screening Fasting glucose (blood sugar) test should be performed every 3 years starting at age 45. Colorectal cancer screening Starting at age 50, women should have a screening colonoscopy at least every 10 years. Screening may be started earlier depending on family history. Thyroid screening Thyroid function test (TSH) should be checked every 5 years starting at age 50. Bone mineral density screening All postmenopausal women age 65 and over and postmenopausal women with risk factors for osteoporosis should have a bone mineral density test performed. Risk factors include race, family history of osteoporosis, personal history of fractures, poor nutrition, smoking, heavy alcohol use, early menopause, low calcium intake and low body weight. Certain medical conditions and long-term use of some medications may also increase risk. Referring Provider: SELF [200] Allergies As of Date: 08/30/2017 (No Known Allergies) Date Reviewed: 08/30/2017 Reviewed by: Pam Soto - Fully Assessed Reason for Visit: Yearly Exam [187] Primary Visit Diagnosis:Encounter for gynecological examination (general) (routine) without abnormal findings [Z01.419] Order(s):[facility] SCREENING [[id number]] Order #: [id number] FUTURE Prescriptions as of 08/30/2017 Sig: LEVOTHYROXINE 88 MCG TABLET Take 1 tablet by mouth once d* MULTIVITAMIN TABLET Take by mouth once daily. More... More... More... More... More... Problem List As Of Date 08/30/2017 Noted Resolved Thyroid cancer (HCC) [C73] INVALID FOR* More... Pain of right thumb [M79.644] INVALID FOR*08/17/2013 Depression [F32.9] INVALID FOR* Hypothyroidism [E03.9] INVALID FOR* Thyroid nodule [E04.1] INVALID FOR* More... 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 Some of these tests may be ordered or performed by your primary care doctor. Pap test screening The pap test looks at cells on the cervix (the opening from the vagina to the uterus) to look for cancer or pre-cancerous changes. These changes are caused by the human papillomavirus (HPV). Studies estimate that half of all women will test positive for this virus within 3 years of starting sexual activity. For young women with a normal immune system, 90% of HPV infections will resolve within 2 years. There is a vaccine available against some forms of HPV. This is recommended for girls and women age 9-26 and is a series of 3 injections over 6 months. Because this vaccine does not protect against all HPV types which can cause cervical cancer, women who received the vaccine still need pap tests. Pap smear screening should be started at age 21. The pap test should be done every 3 years from age 21-29. From age 30-65, pap smears can be done every 5 years if HPV test is negative or every 3 years if HPV testing is not done. For women over the age of 65, ACOG recommends against screening women who have had adequate prior screening and are not otherwise at high risk for cervical cancer. Women who have had a hysterectomy also do not need routine pap smear screening unless the pap smear was done for a cervical cancer or moderate to severe dysplasia. Breast cancer screening Mammogram should be performed every 1-2 years starting at age 40 and every year starting at age 50. Screening may be started earlier depending on family history. Cholesterol screening Lipid panel (cholesterol test) should be checked every 5 years starting at age 45. Diabetes screening Fasting glucose (blood sugar) test should be performed every 3 years starting at age 45. Colorectal cancer screening Starting at age 50, women should have a screening colonoscopy at least every 10 years. Screening may be started earlier depending on family history. Thyroid screening Thyroid function test (TSH) should be checked every 5 years starting at age 50. Bone mineral density screening All postmenopausal women age 65 and over and postmenopausal women with risk factors for osteoporosis should have a bone mineral density test performed. Risk factors include race, family history of osteoporosis, personal history of fractures, poor nutrition, smoking, heavy alcohol use, early menopause, low calcium intake and low body weight. Certain medical conditions and long-term use of some medications may also increase risk. 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 Disposition: Return in 1 year (on 08/30/2018) for Annual Exam. Follow-up and Disposition History Recorded Encounter Status:Closed by PAM SOTO MD on 08/30/17 US THYROID/PARATHYROID Observed: 06/30/2017 Status: C Source: EBR[facility] 2:[address] [facility] REPOSITORY * * *Final Report* * * * * * SEE BOTTOM OF REPORT FOR ADDENDED TEXT * * * DATE OF EXAM: Jun 30 2017 2:44PM [facility] 1048 - US THYROID/PARATHYROID / PROCEDURE REASON: Nontoxic single thyroid nodule * * * * Physician Interpretation * * * * * * * * * * * * ORIGINAL REPORT * * * * * * * * EXAMINATION: THYROID ULTRASOUND HISTORY: History of right thyroid resection TECHNIQUE: Sonography and Doppler imaging of the thyroid was performed. Images were obtained and stored in a permanent archive. COMPARISON: 11/06/2013 RESULT: RIGHT LOBE: Surgically absent LEFT LOBE: 3.3 x 1.0 x 0.9 cm; homogeneous echogenicity, expected vascular flow ISTHMUS: 0.2 cm Nodules: 4 mm slightly hypoechoic nodule at the lower pole is without significant change Scattered nonenlarged lymph nodes in the left neck and stable small lymph node at the right thyroidectomy site. IMPRESSION: STATUS POST RIGHT THYROID LOBE RESECTION. STABLE SUBCENTIMETER LEFT THYROID NODULE. SCATTERED NONENLARGED LYMPH NODES IN THE LEFT NECK AND STABLE SMALL LYMPH NODE AT THE RIGHT THYROIDECTOMY SITE. * * * * * * * * ADDENDUM #1 * * * * * * * * CERVICAL LYMPH NODE MAPPING ULTRASOUND CLINICAL HISTORY: Right papillary cancer status post lobectomy 2010 COMPARISON: None TECHNIQUE: Sonography of the cervical lymph node stations was performed bilaterally. Images were obtained and stored in a permanent archive. RESULT: Right neck: - Level I: No abnormal lymph nodes. - Level II: No abnormal lymph nodes. - Level III: No abnormal lymph nodes. - Level IV: No abnormal lymph nodes. - Level V: No abnormal lymph nodes. Left neck: - Level I: No abnormal lymph nodes. - Level II: No abnormal lymph nodes. - Level III: No abnormal lymph nodes. - Level IV: No abnormal lymph nodes. - Level V: No abnormal lymph nodes. Central compartment, Level : No abnormal lymph nodes. There are a few bilateral nonenlarged cervical lymph nodes IMPRESSION: NO ABNORMAL APPEARING LYMPH NODES IDENTIFIED Flexo Press Operator: SASHA Transcribe Date/Time: Jul 06 2017 8:40A Dictated by : KELBY LANGFORD JR, MD This examination was interpreted and the report reviewed and electronically signed by: KELBY LANGFORD JR, MD on Jun 30 2017 5:13PM EST This document has been addended by: KELBY LANGFORD JR, MD on Jul 06 2017 9:11AM EST [id number] T3 Collected: 06/28/2017 Status: F Source: [facility] 1:12 PM [facility] REPOSITORY TYPE CODE TESTS RESULT OUT OF RANGE REFERENCE UNITS LAB FREET3 2.3-4.1 pg/mL Free T3 3.0 Performed By: #### FREET3, FT4, TSH #### [facility] [address] [address] FREE T4 Collected: 06/28/2017 Status: F Source: [facility] 1:12 PM [facility] REPOSITORY TYPE CODE TESTS RESULT OUT OF RANGE REFERENCE UNITS LAB FT4 0.9-1.7 ng/dL Free T4 1.4 Performed By: #### FREET3, FT4, TSH #### [facility] [employer] [address] [address] TSH Collected: 06/28/2017 Status: F Source: [facility] 1:12 PM [facility] REPOSITORY TYPE CODE TESTS RESULT OUT OF RANGE REFERENCE UNITS LAB TSH 0.400-5.500 uU/mL Low TSH 0.249 Performed By: #### FREET3, FT4, TSH #### [facility] [employer] [address] [id number] ALLERGIES ALLERGIES DATE TYPE / CODE NAME / CODE REACTION SEVERITY SOURCE 04/05/2018 Drug No Known Unknown [facility] Allergy/416 Allergies/E91391 [facility] 991040(SNOM 0388(RXNORM) Repository ED CT) NG/18515286 NO KNOWN [facility] 6(SNOMED ALLERGIES [facility]) Repository Drug NO KNOWN [facility] Class/34274 ALLERGIES [facility] [place] 1003(SNOMED Repository CT) ENCOUNTERS ENCOUNTERS ADMIT/DISCHARGE ACCOUNT NUMBER ADMITTING ENCOUNTER LOCATION SOURCE CLASS 04/05/2018/04/06/19 [id number] [facility] Ambulatory [facility] ding:PCURoom Repository : [id number]: 1 04/05/2018 [id number] [facility], Ambulatory BMSBuilding: [place] BMS.[facility] Repository 04/05/2018 [id number] [facility], Ambulatory BMSBuilding: [place] BMS.[facility] Repository 02/13/2018/02/14/20 [id number] Ambulatory [address] Repository 08/30/2017/08/31/19 [id number] Ambulatory [address] Other [place] Repository 08/30/2017/08/31/19 [id number] Ambulatory [address] MEDICAL Repository CENTERBuildi ng:AGOBGRN 07/05/2017/07/06/19 [id number] Ambulatory [address] Repository 07/01/2017 [id number] Ambulatory [facility] MEDICAL Repository CENTERBuildi ng:AKUSB 06/30/2017/07/01/19 [id number] Ambulatory [address] Repository 06/28/2017 [id number] Ambulatory [facility] Repository PAYERS PAYERS ENCOUNTER GUARANTOR PAYER SUBSCRIBER SOURCE 04/05/2018 ALAINA Pinzon [id number] Primary ALAINA RAMIRZEB: [place] Insurance:CROWPolicy [id number] Number: [facility] [address]Hdh: (204) [id number] Repository [phone] () Date:[id number] [id number], [place] [address]RG: 04/05/2018 Secondary NOT GIVENUNK Stefan Insurance:SELF PAY Community INSURANCEPolicy Hospital Number: Effective Repository Date:2018-04-05 04/05/2018 ALAINA Pinzon [id number] Primary ALAINA Pinzon BESTDOB: [place] Insurance:[employer] [id number] Number: Hospital [id number]: (216) [id number] Repository [phone] (HP) Date:[id number] [address], [place] [address]HS: 04/05/2018 Secondary NOT GIVENUNK [place] Insurance:SELF PAY [facility] Number: Effective Repository Date:2018-04-05 04/05/2018 ALAINA Pinzon [id number] Primary ALAINA Pinzon BESTDOB: [place] [facility] [id number], [place] Number: Hospital [address]Lnr: (216) [id number] Repository [phone] () Date:2551-98-19NR [address], [place] [address]PS: 04/05/2018 Secondary NOT GIVENUNK [place] Insurance:SELF PAY [facility] Number: Effective Repository Date:2018-04-05 08/30/2017 ALAINA BESTDOB: Primary ALAINA BESTDOB: [facility] [id number] Insurance:[employer]my [id number] [facility] CARA OAPPolicy Number: [place] [id number]: (216) Date: () 07/01/2017 ALAINA BESTDOB: Primary ALAINA BESTDOB: [facility] [id number] Insurance:[id number] [facility] CARA OAPPolicy Number: [place] [id number]: (216) Date: (HP)
== END 2018-04-06 11:11 | disposition home or self-care (01) ==
LOC: ED 13:19 → PCU 14:19
PROVIDERS: Admitting Provider Hospitalist; Emergency Provider Emergency Medicine; Family Provider Family Medicine; PCP Family Medicine
DX: R00.2 Palpitations (principal); R06.02 Shortness of breath; F41.9 Anxiety disorder, unspecified; E03.9 Hypothyroidism, unspecified; C73 Malignant neoplasm of thyroid gland; Z79.899 Other long term (current) drug therapy
CPT/HCPCS: 36415; 71045; 78452; 80048; 84436; 84439; 84443; 84481; 84484; 85025; 85027; 85379; 85610; 85730; 93005; 93017; 93306; 96360; 96361; 99218; 99285; A9500; J7030; Q9957; A4216; G0378; J2785

== ENCOUNTER → 2018-05-17 09:17 | Outpatient (CLI) | payer OTHER, SELFPAY ==
[2018-04-05 15:16] VITALS: BMI 24.5
[2018-05-17 10:48] LABS: Cholesterol 237 mg/dL (200); High Density Lipoprotein 102 mg/dL; Triglycerides 82 mg/dL; Very Low Density Lipoprotein 16 mg/dL (5-40)
[2018-05-20 06:08] LABS: QNTFERON TB Mitogen Value > 10.00 IU/mL (.); QNTFERON TB Nil Value 0.04 IU/mL (.); QNTFERON TB1+ Ag Value 0.12 IU/mL (.); QNTFERON TB2+ Ag Value 0.14 IU/mL (.)
[2018-05-22 11:42] LABS: QNTIFERON TB Positive Criteria Negative (Negative)
== END ==
PROVIDERS: Family Provider Family Medicine; PCP Family Medicine; Referring Provider Family Medicine; Visit Provider Family Medicine
DX: Z11.1 Encounter for screening for respiratory tuberculosis (principal); E78.00 Pure hypercholesterolemia, unspecified
CPT/HCPCS: 36415; 80061; 86480